=== PATIENT | male | born 1940 | race Caucasian/White ===

== ENCOUNTER 2017-01-01 18:17 | Inpatient (IN) ==
[2017-01-01 18:41] LABS: Basophils # 0.1 K/mcL (0.0-0.2); Basophils % 0.7 %; Eosinophils # 0.5 K/mcL (0.0-0.6); Eosinophils % 4.4 %; Hematocrit 46.1 % (37.5-50.1); Hemoglobin 15.8 g/dL (12.9-16.9); Immature Granulocytes % 0.2 % (0-4); Lymphocytes % 28.5 %; Mean Corpuscular HGB Conc 34.3 g/dL (31.6-35.5); Mean Corpuscular Hemoglobin 32.6 pg (28.0-33.3); Mean Corpuscular Volume 95.1 fL (83.0-100.0); Mean Platelet Volume 10.3 fL (9.4-12.4); Monocytes # 0.9 K/mcL (0.0-1.3); Monocytes % 8.4 %; Neutrophils # 6.2 K/mcL (1.6-8.9); Platelet Count 338 K/mcL (140-400); Red Blood Count 4.85 M/mcL (4.19-5.50); Red Cell Distribution Width 13.9 % (11.5-14.5); Segmented Neutrophils % 57.8 %
[2017-01-01 18:46] LABS: INR 1.2; Prothrombin Time 12.5 Seconds (9.4-12.1)
[2017-01-01 18:49] LABS: Activated Partial Thrombo Time 31.3 Seconds (26.0-36.0)
[2017-01-01 18:55] LABS: BUN/Creatinine Ratio 15 (6-26); Blood Urea Nitrogen 14 mg/dL (8-26); Calcium 9.4 mg/dL (8.6-10.8); Carbon Dioxide 29 mEq/L (19-29); Chloride 106 mEq/L (98-109); Glucose 123 mg/dL (70-99); Osmolality,Calculated 294 (280-300); Sodium 141 mEq/L (136-145); eGFR For African Americans > 60 (> 60); eGFR For Non-African Americans > 60 (> 60)
--- NOTE | 2017-01-01 18:59 | Emergency Department Note ---
Disposition Clinical Impression: Epigastric abdominal pain, Transaminitis, Elevated bilirubin Disposition: Admitted As Inpatient Condition: Good General Adult HPI - General Chief complaint: ED Chest Pain Stated complaint: Chest Pain Time Seen by Provider: 01/01/17 18:55 Source: patient Mode of arrival: private vehicle Limitations: no limitations Nursing Notes Reviewed: Yes Vital Signs Reviewed: Yes - History of Present Illness HPI Narrative: 76-year-old male history of hyperlipidemia, gastric ulcers who presents to the ER with a chief complaint of epigastric pain. Patient states symptoms began roughly 1-1/2 hours ago. States he was riding on his lawnmower whenever he had sudden onset of symptoms. He is unable to provide a description of the symptoms but reports it is better as of now. He denies prior history of this happening. He states he did feel nauseous and broke out into a sweat. He denies prior history of cardiac disease. No history of VA, DVT or PE. No recent vomiting or diarrhea. No cough or shortness of breath. No prior cardiac workup history. No other complaints. Pt Subjective Complaint: Chest pain/epigastric pain Onset (ago): hour(s) Location: chest, abdomen Radiation: non-radiation Pain Severity: moderate Pain Scale: 5 Quality: other Consistency: Improving Improves with: nothing Worsens with: nothing Associated symptoms: Reports: chest pain, diaphoresis, nausea/vomiting (No vomiting) Treatments Prior to Arrival: none - Related Data Home Medications Medication Instructions Recorded Confirmed Cholecalciferol (Vitamin D3) 2,000 unit PO DAILY 01/09/15 01/01/17 [Vitamin D] Aspirin Enteric Coated [Aspirin EC] 81 mg PO DAILY 01/01/17 01/01/17 Atorvastatin Calcium [Lipitor] 20 mg PO HS 01/01/17 01/01/17 Allergies Allergy/AdvReac Type Severity Reaction Status Date / Time No Known Allergies Allergy Verified 01/09/15 13:57 All systems ED: reviewed and negative except as stated. Constitutional: Denies: fever Cardiovascular: Reports: chest pain (Epigastric). Denies: palpitations Respiratory: Denies: cough, dyspnea Gastrointestinal: Reports: abdominal pain (Epigastric), nausea. Denies: vomiting Musculoskeletal: Denies: back pain, neck pain Past Medical History - Past Medical History Attestation: Yes The following information was validated with the patient. Source: patient Medical history: Reports: arthritis, GERD, hyperlipidemia, hypertension, other Surgical history: Reports: cholecystectomy, herniorrhaphy (x3 with mesh), orthopedic, other (left foot surgery; left leg surgery), splenectomy Psychiatric history: Reports: no psych history - Social History Smoking Status: Never smoker Smokeless Tobacco Status: No Alcohol use: Reports: none Drug use: Reports: none Physical Exam - General Limitations: no limitations General appearance: alert, in no apparent distress - Head Head exam: atraumatic, normocephalic, normal inspection - Eye Eye exam: Present: normal appearance, EOMI - ENT ENT exam: normal exam - Neck Neck exam: Present: normal inspection, full ROM - Chest Chest inspection: Present: normal inspection, symmetric chest wall rise - Respiratory Respiratory exam: Present: normal lung sounds bilaterally - Cardiovascular Cardiovascular exam: Present: regular rate, irregular rhythm, normal heart sounds - Abdominal Exam Abdominal exam: Present: soft, tenderness (Patient has reproducible tenderness in the epigastric region without distention guarding or rigidity.) - Extremities Exam Extremities exam: Present: normal inspection, full ROM - Expanded Upper Extremity Exam Shoulder exam: Present: normal inspection, full ROM Arm exam: Present: normal inspection, full ROM Elbow exam: Present: normal inspection, full ROM Forearm/Wrist exam: Present: normal inspection, full ROM Hand exam: Present: normal inspection, full ROM Vascular exam: Normal: radial pulse - Expanded Lower Extremity Exam Hip/Pelvis exam: Present: normal inspection, full ROM Upper leg exam: Present: normal inspection, full ROM Knee exam: Present: normal inspection, full ROM Lower leg exam: Present: normal inspection, full ROM Ankle exam: Present: normal inspection, full ROM Foot/toe exam: Present: normal inspection, full ROM Neurovascular/Tendon exam: Absent: motor deficit, sensory deficit - Neurological Exam Neurological exam: Present: alert - Psychiatric Psychiatric exam: Present: normal affect, normal mood - Skin Skin exam: Present: warm, dry, intact, normal color Course Course Narrative: Patient seen and examined. EKG shows no acute findings. His pain is reproducible midepigastric region. We will obtain an EKG, chest x-ray as well as labs including troponin as well as a CT scan of the abdomen and pelvis. - Reevaluation(s) Reevaluation #1: I attempted to speak with the gemologist here for evaluation due to his transaminitis, elevated alkaline phosphatase and elevated bilirubin. There is no current ER coverage. I discussed with the family about admission for his abnormal labs as well as his vague epigastric pain rule out ACS. They are in agreement with this plan. Vital Signs Temperature 97.9 F 01/01/17 18:18 Pulse Rate 53 01/01/17 18:18 Respiratory Rate 22 01/01/17 18:18 Blood Pressure 145/73 01/01/17 18:18 O2 Sat by Pulse Oximetry 96 01/01/17 18:18 Temperature 97.9 F 01/01/17 18:18 Pulse Rate 71 01/01/17 20:47 Respiratory Rate 16 01/01/17 22:15 Blood Pressure 135/67 01/01/17 22:15 O2 Sat by Pulse Oximetry 98 01/01/17 20:47 Oxygen Delivery Oxygen Delivery Room Air Medical Decision Making - MDM Narrative Medical decision making narrative: 76-year-old male presents to the ER due to epigastric abdominal pain. Started earlier today when he was riding lower. No prior history of cardiac disease. His pain here is epigastric and reproducible. His EKG is nonischemic with ectopy. First troponin is negative. He did have some metabolic derangements with a transaminitis, elevated bilirubin and alkaline phosphatase. Prior history of cholecystectomy around 3 years ago as per family. CT scan demonstrates no acute abnormalities of the abdomen. Patient will be admitted for ACS rule out as well as gastroenterology consultation for abnormal labs. - Lab Data Lab results reviewed: Yes I reviewed the patient's lab results. Result diagrams: 01/01/17 18:35 01/01/17 18:35 Lab Results 01/01/17 01/01/17 01/01/17 Range/Units 18:35 18:35 18:35 WBC 10.7 (4.3-11.1) K/mcL RBC 4.85 (4.19-5.50) M/mcL Hgb 15.8 (12.9-16.9) g/dL Hct 46.1 (37.5-50.1) % MCV 95.1 (83.0-100.0) fL MCH 32.6 (28.0-33.3) pg MCHC 34.3 (31.6-35.5) g/dL RDW 13.9 (11.5-14.5) % Plt Count 338 (140-400) K/mcL MPV 10.3 (9.4-12.4) fL Immature Gran % 0.2 (0-4) % Seg Neutrophils % 57.8 % Lymphocytes % 28.5 % Monocytes % 8.4 % Eosinophils % 4.4 % Basophils % 0.7 % Neutrophils # 6.2 (1.6-8.9) K/mcL Lymphocytes # 3.0 (0.6-4.6) K/mcL Monocytes # 0.9 (0.0-1.3) K/mcL Eosinophils # 0.5 (0.0-0.6) K/mcL Basophils # 0.1 (0.0-0.2) K/mcL PT 12.5 H (9.4-12.1) Seconds INR 1.2 APTT 31.3 (26.0-36.0) Seconds Sodium (136-145) mEq/L Potassium (3.5-4.5) mEq/L Chloride (98-109) mEq/L Carbon Dioxide (19-29) mEq/L BUN (8-26) mg/dL Creatinine (0.72-1.25) mg/dL Est GFR ( Amer) (> 60) Est GFR (Non-Af Amer) (> 60) BUN/Creatinine Ratio (6-26) Glucose (70-99) mg/dL Calculated Osmolality (280-300) Calcium (8.6-10.8) mg/dL Total Bilirubin (0.2-1.2) mg/dL Direct Bilirubin (0.0-0.5) mg/dL Indirect Bilirubin (0.0-1.2) mg/dL AST (5-34) Units/L ALT (0-55) Units/L Alkaline Phosphatase (38-126) Units/L Troponin I (0-0.03) ng/mL B-Natriuretic Peptide 78 (0-100) pg/mL Serum Total Protein (6.0-8.3) g/dL Albumin (3.5-5.0) g/dL Globulin (2.4-3.5) g/dL Albumin/Globulin Ratio (1.1-2.2) Lipase (8-78) Units/L 01/01/17 01/01/17 Range/Units 18:35 18:35 WBC (4.3-11.1) K/mcL RBC (4.19-5.50) M/mcL Hgb (12.9-16.9) g/dL Hct (37.5-50.1) % MCV (83.0-100.0) fL MCH (28.0-33.3) pg MCHC (31.6-35.5) g/dL RDW (11.5-14.5) % Plt Count (140-400) K/mcL MPV (9.4-12.4) fL Immature Gran % (0-4) % Seg Neutrophils % % Lymphocytes % % Monocytes % % Eosinophils % % Basophils % % Neutrophils # (1.6-8.9) K/mcL Lymphocytes # (0.6-4.6) K/mcL Monocytes # (0.0-1.3) K/mcL Eosinophils # (0.0-0.6) K/mcL Basophils # (0.0-0.2) K/mcL PT (9.4-12.1) Seconds INR APTT (26.0-36.0) Seconds Sodium 141 (136-145) mEq/L Potassium 4.0 (3.5-4.5) mEq/L Chloride 106 (98-109) mEq/L Carbon Dioxide 29 (19-29) mEq/L BUN 14 (8-26) mg/dL Creatinine 0.95 (0.72-1.25) mg/dL Est GFR ( Amer) > 60 (> 60) Est GFR (Non-Af Amer) > 60 (> 60) BUN/Creatinine Ratio 15 (6-26) Glucose 123 H (70-99) mg/dL Calculated Osmolality 294 (280-300) Calcium 9.4 (8.6-10.8) mg/dL Total Bilirubin 1.7 H (0.2-1.2) mg/dL Direct Bilirubin 0.8 H (0.0-0.5) mg/dL Indirect Bilirubin 0.9 (0.0-1.2) mg/dL AST 130 H (5-34) Units/L ALT 63 H (0-55) Units/L Alkaline Phosphatase 146 H (38-126) Units/L Troponin I 0.00 (0-0.03) ng/mL B-Natriuretic Peptide (0-100) pg/mL Serum Total Protein 7.4 (6.0-8.3) g/dL Albumin 3.5 (3.5-5.0) g/dL Globulin 3.9 H (2.4-3.5) g/dL Albumin/Globulin Ratio 0.9 L (1.1-2.2) Lipase 58 (8-78) Units/L - Radiology Data Radiology results reviewed: Yes I reviewed the patient's radiology results. Chest X-Ray 01/01/17 18:23 IMPRESSION: No acute abnormality D/ / Bari Santos / Bari Santos Interpreting Provider: Bari Santos Abdomen/Pelvis CT 01/01/17 18:56 IMPRESSION: Negative noncontrast study. D/ / Lillian Rodriguez Cha, MD / Lillian Rodriguez Cha, MD Interpreting Provider: Lillian Rodriguez Cha, MD - EKG Data EKG #1 EKG attestation: Yes I reviewed and interpreted this EKG. EKG results narrative: EKG demonstrates sinus bradycardia with rate of 59 bpm with PACs. Normal intervals. Left axis deviation. Normal R-wave progression. No gross ST elevations or depressions. No acute ischemic findings. No significant changes from previous EKG dated 07/24/12. S.B.A.R. - S.B.A.RCharu Situation: Demographics, MOA Background: Presenting Complaint, Relevant PMH, Meds, & Allergies Assessment: Course and respsone to treatment, Exam Concerns, Patient/Family Expectation, Pertinant Lab Results, Outstanding Labs Recommendation: Barrier(s) to disposition, Recommendation based on pending studies, treatments, or consults S.B.A.RCharu Report Given to: Dr. Clifton Gonzalez Repor Time: 21:41 Attestation Statement - Attestation Attestation: I, Pepe Melgar MD, personally evaluated this patient and discussed their management with the resident physician. I reviewed the resident's note and agree with the documented findings, medical decision making, and plan of care. 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 No radiation of the pain. He did complain of nausea with the pain but no vomiting. No shortness of breath. There was profuse diaphoresis. The pain has improved spontaneously since onset however, my exam he states it feels like it is starting to come back. Patient has had his gallbladder out several years ago. He denies any cardiac history. On examination patient is a well-developed well-nourished well-appearing elderly male in no acute distress. He is alert and oriented 3. There is no cyanosis or diaphoresis. Chest is nontender to palpation. Breath sounds are clear and equal bilaterally. Heart regular rate and rhythm. Abdomen is soft with mild to moderate midepigastric tenderness on direct palpation. No guarding or rebound tenderness. No CVA tenderness. Labs reviewed. Troponin negative. Elevated hepatic enzymes noted. Chest x- ray negative. No acute changes on EKG. CT of the abdomen and pelvis was obtained and showed no definite acute abnormality. The hospitalist, Dr. Lazo, was consulted and accepted admission of the patient.
[2017-01-01 19:17] LABS: Alanine Aminotransferase 63 Units/L (0-55); Albumin 3.5 g/dL (3.5-5.0); Albumin/Globulin Ratio 0.9 (1.1-2.2); Alkaline Phosphatase 146 Units/L (38-126); Aspartate Amino Transferase 130 Units/L (5-34); Bilirubin,Direct 0.8 mg/dL (0.0-0.5); Bilirubin,Indirect 0.9 mg/dL (0.0-1.2); Bilirubin,Total 1.7 mg/dL (0.2-1.2); Globulin 3.9 g/dL (2.4-3.5); Total Protein 7.4 g/dL (6.0-8.3)
[2017-01-01 20:06] LABS: Lipase 58 Units/L (8-78)
[2017-01-01] MEDS ORDERED: *HR* Morphine 2 MG/ML SYRINGE IVP ONE (21:10)
[2017-01-01] MEDS ORDERED: *HR* Succinylcholine 200 MG/10 ML VIAL IVP ONE (22:02)
[2017-01-01] MEDS ORDERED: Lidocaine -MPF 2% 5 ML VIAL INFILT ONE (22:02)
[2017-01-01] MEDS ORDERED: Lidocaine -MPF 4% 5 ML AMPUL INFILT ONE (22:02)
[2017-01-01] MEDS ORDERED: Ondansetron 4 MG/2 ML VIAL IVP ONE (22:02)
[2017-01-01] MEDS ORDERED: *HR* Propofol 200 MG/20 ML VIAL IVP ONE (22:02)
[2017-01-01] MEDS ORDERED: FLUARIX QUAD 2017-18 36MOS UP/PF 0.5 ML SYRINGE IM ONE (22:44)
--- NOTE | 2017-01-01 23:39 | Internal Med History&Physical ---
<Thuan Mix - Last Filed: 01/01/17 23:55> Date of Encounter: 01/01/17 Time of Encounter: 21:45 Assessment and Plan (1) Epigastric abdominal pain Current visit: Yes Status: Acute Patient's epigastric pain is reproduced by palpation. This could possibly represent peptic ulcer disease or biliary disease, given his elevated AST, ALP, and alkaline phosphatase. -Referral to gastroenterology. -Right upper quadrant ultrasound. -Protonix IV twice a day. -Repeat CMP, repeat bilirubin. (2) Transaminitis Current visit: Yes Status: Acute Patient's liver enzymes are elevated. -AST was 130, ALT was 63, alkaline phosphatase was 146. -Patient denies having any history of alcohol use. -CT scan of the abdomen revealed no acute changes. -Referral to gastroenterology. (3) Elevated bilirubin Current visit: Yes Status: Acute Patient had elevated bilirubin. -Total bilirubin was 1.7, and indirect bilirubin was 0.8. -Repeat bilirubin studies. -Right upper quadrant ultrasound to rule out the possibility of obstruction or biliary disease. Internal Medicine - H&P: HPI Admitted From: Home History of present illness: Mr. Clay is a 76 year old male with past medical history of arthritis, GERD, hyperlipidemia, and hypertension who presented to the hospital with a chief complaint of abdominal pain in the epigastric area as well as lower chest pain. He states that this pain began approximately 90 minutes prior to admission. He states that he was riding on his lawnmower when he had a very sudden onset of symptoms. He described his pain as being sharp constant pain, nonradiating. He states that his pain has improved since his admission to the hospital. Pain is reproducible on palpation. One area is palpated, patient winces in pain. He notes that when his symptoms first began, he felt nauseous and broke out into a sweat. He currently denies diaphoresis or nausea. He denies having any previous history of cardiac disease, GA, DVT, or PE. He has had no recent vomiting or diarrhea. Patient denies having any recent changes in the appearance or consistency of his stools. He denies diarrhea or constipation. Past Med Surg Social Fam HX - Past Medical History Medical history: arthritis, GERD, hyperlipidemia, hypertension, other Psychiatric history: no psych history - Past Surgical History Surgical History: cholecystectomy, herniorrhaphy, orthopedic, other, splenectomy - Social History Smoking Status: Never smoker Smokeless Tobacco Status: No Alcohol use: none Drug use: none - Family History Father Hx Family Respiratory Disorders: Yes (emphysema) Sister Living Status: Hx Family Cancer: Yes Hx Family GI Disorders: Yes Mother Living Status: Hx Family GI Disorders: Yes (colitis) Internal Medicine - H&P: Meds Cholecalciferol (Vitamin D3) [Vitamin D] 2,000 unit PO DAILY 01/09/15 [History] Aspirin Enteric Coated [Aspirin EC] 81 mg PO DAILY 01/01/17 [History] Atorvastatin Calcium [Lipitor] 20 mg PO HS 01/01/17 [History] 3 Allergy/AdvReac Type Severity Reaction Status Date / Time No Known Allergies Allergy Verified 01/09/15 13:57 All Systems PM: A 10-system review of systems was performed and is negative for pertinent findings except as documented above in the HPI. - EENT Nose, mouth and throat: no dysphagia, no nasal discharge, no neck pain, no sore throat - Cardiovascular Cardiovascular ROS IM: chest pain, no diaphoresis, no dyspnea, no lightheadedness, no palpitations, no syncope - Respiratory Respiratory: no cough, no dyspnea, no wheezing, no excessive phlegm production - Gastrointestinal Gastrointestinal: abdominal pain, no constipation, no cramping, no diarrhea, no hematemesis, no hematochezia, no melena, no nausea, no vomiting - Musculoskeletal Musculoskeletal ROS IM: no numbness, no tingling - Integumentary Integumentary IM: no rash, no unusual bruising - Constitutional Vitals: Temp Pulse Resp BP Pulse Ox 98.1 F 78 16 173/68 93 01/01/17 22:34 01/01/17 22:34 01/01/17 22:15 01/01/17 22:34 01/01/17 22:34 General appearance: Present: A&O X 3, no acute distress, answers questions appropriately - Head Head exam: Present: atraumatic, normocephalic - Respiratory Respiratory exam: Present: CTAB. Absent: accessory muscle use, rales, rhonchi, wheezes - Cardiovascular Cardiovascular exam: Present: RRR, +S1, +S2. Absent: diastolic murmur, gallop, rubs, systolic murmur - GI/Abdominal GI/Abdominal exam: Present: normal bowel sounds, soft, no peritoneal signs. Absent: distended, tenderness - Extremities Exam Extremities exam: Present: warm, radial pulses palpable and symmetrical. Absent : pedal edema - Skin Skin exam: Present: dry, intact Internal Med - H&P Results - Labs CBC & Chem 7: 01/01/17 18:35 01/01/17 18:35 <Hernesto Coker Monie - Last Filed: 01/02/17 01:00> Date of Encounter: 01/01/17 Assessment and Plan (1) Chest pain Current visit: Yes Status: Acute Patient has no known as no history of CAD but presents with chest pain and associated symptoms(diaphoresis, pressure like chest pain, lightheadedness, feeling of apprehension) concerning for ACS, EKG was not remarkable for ischemia but he has symptoms and risk factors for which it will be reasonable to order a stress test, cycle troponin, telemetry monitoring, NPO post midnight Qualifiers: Chest pain type: precordial pain Qualified Code(s): R07.2 - Precordial pain Internal Medicine - H&P: HPI Chief complaint: Chest/epigastric pain Plans for Post Hospital Care: Home History of present illness: Mr. Clay is a 76 year old male Past Med Surg Social Fam HX - Additional Family History Additional family history: Sister had colon cancer in her 40s, no known family history of CAD All Systems PM: A 10-system review of systems was performed and is negative for pertinent findings except as documented above in the HPI. - Constitutional Vitals: Temp Pulse Resp BP Pulse Ox 98.1 F 78 16 173/68 93 01/01/17 22:34 01/01/17 22:34 01/01/17 22:15 01/01/17 22:34 01/01/17 22:34 Internal Med - H&P Results - Labs CBC & Chem 7: 01/02/17 00:38 01/01/17 18:35 Labs: Short CBC 01/02/17 Range/Units 00:38 WBC 10.4 (4.3-11.1) K/mcL Hgb 14.9 (12.9-16.9) g/dL Hct 43.1 (37.5-50.1) % Plt Count 309 (140-400) K/mcL Neutrophils # 5.5 (1.6-8.9) K/mcL - Attending Attestation I personally interviewed and examined this patient and my medical decision- making was reviewed with the Resident Physician. I agree with the documented findings, disposition and treatment plan as described except to the extent set forth below. Patient with no known history of CAD with a negative stress test in 2012 comes in with chest pain with other symptoms concerning for ACS, incidentally his physical exam findings was remarkable for epigastric tenderness as well as elevated LFTs on bood draw, we will order a nuclear stress test and follow a dedicated biliary tree USG in AM. Hernesto Coker MD, MPH Hospitalist
[2017-01-01] MEDS ORDERED: Naloxone 0.4 MG/ML INJ IVP PRN (23:51)
[2017-01-02 00:46] LABS: Basophils # 0.1 K/mcL (0.0-0.2); Basophils % 0.7 %; Eosinophils # 0.4 K/mcL (0.0-0.6); Eosinophils % 3.5 %; Hematocrit 43.1 % (37.5-50.1); Hemoglobin 14.9 g/dL (12.9-16.9); Immature Granulocytes % 0.2 % (0-4); Lymphocytes # 3.5 K/mcL (0.6-4.6); Lymphocytes % 33.3 %; Mean Corpuscular HGB Conc 34.6 g/dL (31.6-35.5); Mean Corpuscular Hemoglobin 32.3 pg (28.0-33.3); Mean Corpuscular Volume 93.5 fL (83.0-100.0); Mean Platelet Volume 10.2 fL (9.4-12.4); Monocytes % 9.8 %; Neutrophils # 5.5 K/mcL (1.6-8.9); Platelet Count 309 K/mcL (140-400); Red Blood Count 4.61 M/mcL (4.19-5.50); Red Cell Distribution Width 14.1 % (11.5-14.5); Segmented Neutrophils % 52.5 %
[2017-01-02 00:58] LABS: Hemoglobin A1C 5.2 %
[2017-01-02 01:00] LABS: Alanine Aminotransferase 103 Units/L (0-55); Albumin 3.1 g/dL (3.5-5.0); Albumin/Globulin Ratio 0.9 (1.1-2.2); Alkaline Phosphatase 140 Units/L (38-126); Aspartate Amino Transferase 166 Units/L (5-34); BUN/Creatinine Ratio 18 (6-26); Bilirubin,Direct 0.5 mg/dL (0.0-0.5); Bilirubin,Indirect 0.6 mg/dL (0.0-1.2); Bilirubin,Total 1.1 mg/dL (0.2-1.2); Blood Urea Nitrogen 14 mg/dL (8-26); Calcium 8.8 mg/dL (8.6-10.8); Carbon Dioxide 26 mEq/L (19-29); Chloride 107 mEq/L (98-109); Globulin 3.6 g/dL (2.4-3.5); Glucose 91 mg/dL (70-99); Osmolality,Calculated 290 (280-300); Potassium 3.9 mEq/L (3.5-4.5); Sodium 140 mEq/L (136-145); Total Protein 6.7 g/dL (6.0-8.3); eGFR For African Americans > 60 (> 60); eGFR For Non-African Americans > 60 (> 60)
[2017-01-02 01:01] LABS: Chol/HDL Ratio 3.7 (0-4.9); Magnesium 2.1 mg/dL (1.6-2.6); Phosphorous 3.6 mg/dL (2.3-4.7)
[2017-01-02] MEDS ORDERED: Regadenoson 0.4 MG/5 ML SYRINGE IVP ONE (05:54)
[2017-01-02] MEDS: Pantoprazole 40 MG VIAL IVP SCH ×2 (05:58→18:37)
[2017-01-02] MEDS: *HR* Heparin 5,000 UNIT/ML VIAL SQ SCH ×3 (05:58→22:10)
[2017-01-02] MEDS: Aspirin Enteric Coated 81 MG Tablet PO SCH (12:16)
[2017-01-02] MEDS: Cholecalciferol (D-3) 1,000 UNIT TABLET PO SCH (12:17)
[2017-01-02 15:47] LABS: Albumin 3.2 g/dL (3.5-5.0); Albumin/Globulin Ratio 0.9 (1.1-2.2); Bilirubin,Direct 0.7 mg/dL (0.0-0.5); Bilirubin,Indirect 1.1 mg/dL (0.0-1.2); Globulin 3.4 g/dL (2.4-3.5); Total Protein 6.6 g/dL (6.0-8.3)
[2017-01-02 15:48] LABS: Bilirubin,Total 1.8 mg/dL (0.2-1.2)
--- NOTE | 2017-01-02 17:16 | Gastroenterology Consult Note ---
<Lexy Villanueva - Last Filed: 01/02/17 17:53> Date of Encounter: 01/02/17 Time of Encounter: 17:09 - Assessment and plan (1) Choledocholithiasis Current Visit: Yes Status: Acute Assessment and plan: MRI with evidence of 6mm choledocholithiasis with distal bile duct dilation RUQ ultrasound with evidence of common bile duct dilation up to 9 mm but no intrahepatic dilation Liver enzymes elevated likely secondary to blockage Will allo for clear liquid diet for now, NPO after midnight Will plan for ERCP in morning to remove stone Further recommendations to follow after ERCP - Time Spent With Patient Total time spent is greater than 50% in coordination of care (as documented) at patient's floor/unit and/or counseling patient: GI History of Present Illness - Data of Consult Requesting Physician: Ismael Helton MD - Consult Narrative Reason for consult: abdominal pain History of present illness: Mr. Clay is a 76 year old male who presented with sudden onset epigastric abdominal pain who is being seen in consult. 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 He states that he attempted to continue to mow but the pain became worse. He eventually went to house and sat next to his at which point the pain was so severe that he felt he was going to pass out. His who is at bedside states when patient sat down he looked very pale and was extremely diaphoretic. He states that he was very concerned that he was going to as he thought it was his heart. He reports that he had one similar episode about 2 -3 years ago prior to having his gallbladder out but states that the pain at that time was much worse than his current pain. He feels that by time he got to the emergency room his pain ahd begun to improve. He still has some residual pain but classifies it as more of an ache. He denies any change with meals. He denies any family history of liver disease or issues. He has no other concerns at this time. Past Med Surg Social Fam HX - Past Medical History Medical history: arthritis, GERD, hyperlipidemia, hypertension, other Psychiatric history: no psych history - Past Surgical History Surgical History: cholecystectomy, herniorrhaphy, orthopedic, other, splenectomy - Social History Smoking Status: Never smoker Smokeless Tobacco Status: No Alcohol use: none Drug use: none - Family History Father Hx Family Respiratory Disorders: Yes (emphysema) Sister Living Status: Hx Family Cancer: Yes Hx Family GI Disorders: Yes Mother Living Status: Hx Family GI Disorders: Yes (colitis) - Gastrointestinal Gastrointestinal: Present: abdominal pain (epigastric). Absent: constipation, diarrhea, heartburn, hematemesis, nausea, vomiting - Constitutional Constitutional: no fever(s) - EENT Ears: Absent: ear pain Nose, mouth and throat: Absent: dysphagia, sore throat - Cardiovascular Cardiovascular ROS: Absent: chest pain - Respiratory Respiratory IM: Absent: cough, dyspnea - Genitourinary Genitourinary: Absent: Urinary frequency - Neurological ROS Neurological GI: Absent: weakness - Hematologic/Lymphatic Hematologic/Lymphatic pediatric: Absent: easy bleeding - Musculoskeletal Musculoskeletal ROS GI: Absent: back pain, joint swelling - Integumentary Integumentary GI: Absent: jaundice, rash - Constitutional Vitals: Temp Pulse Resp BP Pulse Ox 97.7 F 49 20 148/76 96 01/02/17 04:16 01/02/17 04:16 01/02/17 04:16 01/02/17 04:16 01/02/17 04:16 General appearance: Present: cooperative, A&O X 3, pleasant, no acute distress, obese, answers questions appropriately - Head Head exam: Present: atraumatic, normocephalic - Eye Eye exam: Present: normal appearance, sclera anicteric. Absent: conjunctival injection - ENT ENT exam: Present: mucous membranes moist - Neck Neck exam general surgery: Present: supple, trachea midline - Respiratory Respiratory exam: Present: CTAB. Absent: rales, rhonchi, stridor, wheezes - Cardiovascular Cardiovascular exam: Present: RRR, +S1, +S2. Absent: diastolic murmur, systolic murmur - GI/Abdominal GI/Abdominal exam: Present: normal bowel sounds, soft, tenderness (epigastric ) . Absent: distended, rebound, rigid - Extremities Exam Extremities exam: Present: normal capillary refill. Absent: pedal edema - Skin Skin exam: Present: intact, normal color, warm. Absent: rash Results - Labs CBC & Chem 7: 01/02/17 00:38 01/02/17 00:38 Labs: Last Result Calcium 8.8 mg/dL (8.6-10.8) 01/02/17 00:38 Troponin I 0.01 ng/mL (0-0.03) 01/02/17 06:49 Triglycerides 140 mg/dL (< 150) 01/02/17 00:38 Entire Visit Hgb 14.9 g/dL (12.9-16.9) 01/02/17 00:38 Hct 43.1 % (37.5-50.1) 01/02/17 00:38 PT 12.5 Seconds (9.4-12.1) H 01/01/17 18:35 Total Bilirubin 1.8 mg/dL (0.2-1.2) H D 01/02/17 15:19 AST 90 Units/L (5-34) H 01/02/17 15:19 ALT 87 Units/L (0-55) H 01/02/17 15:19 Lipase 58 Units/L (8-78) 01/01/17 18:35 - ABG ABG results: PT/INR, D-dimer PT 12.5 Seconds (9.4-12.1) H 01/01/17 18:35 - Impressions Impressions Abdomen Ultrasound 01/02/17 11:30 IMPRESSION: 1. Coarse liver echotexture which is nonspecific. Recommend correlation with any chronic underlying liver disease. 2. Mildly dilated common bile duct which is similar in appearance dating back to 07/25/2014 CT and likely related to postcholecystectomy changes. Findings can be correlated with LFTs. 3. Right renal cysts. D/ / 01/02/2017 12:41:38 Leonora Guzmán MD / [facility] Interpreting Provider: Leonora Guzmán MD Abdomen MRI 01/02/17 15:00 IMPRESSION: 1. Mild biliary duct dilation with a 6 mm choledocholithiasis within the distal common bile duct. 2. 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 A few foci of side-branch ectasia are noted within the pancreas which can be seen as sequela of chronic pancreatitis. 3. Bilateral renal cysts. D/ / 01/02/2017 16:43:54 Leonora Guzmán MD / [facility] Interpreting Provider: Leonora Guzmán MD Consult Discharge Plan - Plan Referrals: Kannan Grover MD [Primary Care Provider] - <Lilly Caputo - Last Filed: 01/02/17 22:07> Date of Encounter: 01/02/17 - Time Spent With Patient Total time spent is greater than 50% in coordination of care (as documented) at patient's floor/unit and/or counseling patient: GI History of Present Illness - Data of Consult Requesting Physician: Ismael Helton MD - Consult Narrative History of present illness: Mr. Clay is a 76 year old male - Constitutional Vitals: Temp Pulse Resp BP Pulse Ox 98.6 F 54 16 135/73 95 01/02/17 19:33 01/02/17 19:33 01/02/17 19:33 01/02/17 19:33 01/02/17 19:33 Results - Labs CBC & Chem 7: 01/02/17 00:38 01/02/17 00:38 Labs: Last Result Calcium 8.8 mg/dL (8.6-10.8) 01/02/17 00:38 Troponin I 0.01 ng/mL (0-0.03) 01/02/17 06:49 Triglycerides 140 mg/dL (< 150) 01/02/17 00:38 Entire Visit Hgb 14.9 g/dL (12.9-16.9) 01/02/17 00:38 Hct 43.1 % (37.5-50.1) 01/02/17 00:38 PT 12.5 Seconds (9.4-12.1) H 01/01/17 18:35 Total Bilirubin 1.8 mg/dL (0.2-1.2) H D 01/02/17 15:19 AST 90 Units/L (5-34) H 01/02/17 15:19 ALT 87 Units/L (0-55) H 01/02/17 15:19 Lipase 58 Units/L (8-78) 01/01/17 18:35 - ABG ABG results: PT/INR, D-dimer PT 12.5 Seconds (9.4-12.1) H 01/01/17 18:35 - Impressions Impressions Abdomen Ultrasound 01/02/17 11:30 IMPRESSION: 1. Coarse liver echotexture which is nonspecific. Recommend correlation with any chronic underlying liver disease. 2. Mildly dilated common bile duct which is similar in appearance dating back to 07/25/2014 CT and likely related to postcholecystectomy changes. Findings can be correlated with LFTs. 3. Right renal cysts. D/ / 01/02/2017 12:41:38 Leonora Guzmán MD / [facility] Inter[facility] Provider: Leonora Guzmán MD Abdomen MRI 01/02/17 15:00 IMPRESSION: 1. Mild biliary duct dilation with a 6 mm choledocholithiasis within the distal common bile duct. 2. 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 A few foci of side-branch ectasia are noted within the pancreas which can be seen as sequela of chronic pancreatitis. 3. Bilateral renal cysts. D/ / 01/02/2017 16:43:54 Leonora Guzmán MD / [facility] Interpreting Provider: Leonora Guzmán MD - Attending Attestation I examined this patient and my medical decision-making was reviewed with the Resident Physician. I agree with the documented findings, disposition and treatment plan as described except to the extent set forth below.
--- NOTE | 2017-01-02 18:17 | Internal Med Progress Note ---
Date of Encounter: 01/02/17 Time of Encounter: 10:00 - Assessment and plan (1) Epigastric abdominal pain Current Visit: Yes Status: Acute Assessment and plan: -ACS has been ruled out as patient has negative cardiac biomarkers and negative stress tests. -GI has been consulted with recommendations for MRCP due to elevated transaminases. -MRCP negative will consider EGD. -Continue IV PPI. (2) Transaminitis Current Visit: Yes Status: Acute Assessment and plan: -Right upper quadrant ultrasound done and reviewed by GI. -Hepatitis panel pending. -We will continue to monitor; MRCP ordered as above for further evaluation. - Subjective Interval history: Patient continues to complain of epigastric discomfort. - Constitutional Vitals: Temp Pulse Resp BP Pulse Ox 97.7 F 49 20 148/76 96 01/02/17 04:16 01/02/17 04:16 01/02/17 04:16 01/02/17 04:16 01/02/17 04:16 General appearance: Present: A&O X 3, no acute distress, answers questions appropriately - Respiratory Respiratory exam: Present: CTAB. Absent: accessory muscle use, rales, rhonchi, wheezes - Cardiovascular Cardiovascular exam: Present: RRR, +S1, +S2. Absent: diastolic murmur, gallop, rubs, systolic murmur - GI/Abdominal GI/Abdominal exam: Present: guarding, soft, tenderness (Epigastric tenderness to palpation), no peritoneal signs. Absent: distended Internal Medicine: Result - Labs CBC & Chem 7: 01/02/17 00:38 01/02/17 00:38 Labs: Short CBC 01/02/17 Range/Units 00:38 WBC 10.4 (4.3-11.1) K/mcL Hgb 14.9 (12.9-16.9) g/dL Hct 43.1 (37.5-50.1) % Plt Count 309 (140-400) K/mcL Neutrophils # 5.5 (1.6-8.9) K/mcL BMP 01/02/17 00:38 Sodium 140 Potassium 3.9 Chloride 107 Carbon Dioxide 26 BUN 14 Creatinine 0.79 Glucose 91 Calcium 8.8 Cardiac Enzymes 01/02/17 01/02/17 Range/Units 00:38 06:49 Troponin I 0.00 0.01 (0-0.03) ng/mL Liver Function 01/02/17 01/02/17 01/02/17 Range/Units 00:38 00:38 15:19 Total Bilirubin 1.1 1.1 1.8 H D (0.2-1.2) mg/dL Direct Bilirubin 0.5 0.5 0.7 H (0.0-0.5) mg/dL AST 166 H 90 H (5-34) Units/L ALT 103 H 87 H (0-55) Units/L Alkaline Phosphatase 140 H 130 H (38-126) Units/L Albumin 3.1 L 3.2 L (3.5-5.0) g/dL - ABG Interpretation ABG results: PT/INR, D-dimer PT 12.5 Seconds (9.4-12.1) H 01/01/17 18:35 - Impressions Impressions Abdomen Ultrasound 01/02/17 11:30 IMPRESSION: 1. Coarse liver echotexture which is nonspecific. Recommend correlation with any chronic underlying liver disease. 2. Mildly dilated common bile duct which is similar in appearance dating back to 07/25/2014 CT and likely related to postcholecystectomy changes. Findings can be correlated with LFTs. 3. Right renal cysts. D/ / 01/02/2017 12:41:38 Leonora Guzmán MD / [facility] Interpreting Provider: Leonora Guzmán MD Abdomen MRI 01/02/17 15:00 IMPRESSION: 1. Mild biliary duct dilation with a 6 mm choledocholithiasis within the distal common bile duct. 2. 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 A few foci of side-branch ectasia are noted within the pancreas which can be seen as sequela of chronic pancreatitis. 3. Bilateral renal cysts. D/ / 01/02/2017 16:43:54 Leonora Guzmán MD / [facility] Interpreting Provider: Leonora Guzmán MD Consult Discharge Plan - Plan Referrals: Kannan Grover MD [Primary Care Provider] -
--- NOTE | 2017-01-02 20:05 | Electrocardiograph Report ---
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
--- NOTE | 2017-01-02 20:21 | Electrocardiograph Report ---
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
[2017-01-03] MEDS: *HR* Heparin 5,000 UNIT/ML VIAL SQ SCH ×3 (04:56→21:54)
[2017-01-03] MEDS: Pantoprazole 40 MG VIAL IVP SCH ×2 (04:59→17:37)
[2017-01-03 08:50] LABS: Basophils # 0.1 K/mcL (0.0-0.2); Basophils % 1.6 %; Eosinophils # 0.9 K/mcL (0.0-0.6); Eosinophils % 9.7 %; Hematocrit 44.7 % (37.5-50.1); Hemoglobin 15.4 g/dL (12.9-16.9); Immature Granulocytes % 0.2 % (0-4); Lymphocytes # 2.9 K/mcL (0.6-4.6); Lymphocytes % 32.5 %; Mean Corpuscular HGB Conc 34.5 g/dL (31.6-35.5); Mean Corpuscular Hemoglobin 32.8 pg (28.0-33.3); Mean Corpuscular Volume 95.3 fL (83.0-100.0); Mean Platelet Volume 10.5 fL (9.4-12.4); Monocytes # 0.9 K/mcL (0.0-1.3); Monocytes % 9.5 %; Neutrophils # 4.1 K/mcL (1.6-8.9); Platelet Count 338 K/mcL (140-400); Red Blood Count 4.69 M/mcL (4.19-5.50); Red Cell Distribution Width 14.3 % (11.5-14.5); Segmented Neutrophils % 46.5 %
[2017-01-03 09:07] LABS: Alanine Aminotransferase 74 Units/L (0-55); Albumin 3.1 g/dL (3.5-5.0); Albumin/Globulin Ratio 0.8 (1.1-2.2); Alkaline Phosphatase 129 Units/L (38-126); Aspartate Amino Transferase 62 Units/L (5-34); BUN/Creatinine Ratio 13 (6-26); Blood Urea Nitrogen 10 mg/dL (8-26); Carbon Dioxide 25 mEq/L (19-29); Chloride 107 mEq/L (98-109); Globulin 3.7 g/dL (2.4-3.5); Glucose 94 mg/dL (70-99); Osmolality,Calculated 285 (280-300); Potassium 4.6 mEq/L (3.5-4.5); Sodium 138 mEq/L (136-145); Total Protein 6.8 g/dL (6.0-8.3); eGFR For African Americans > 60 (> 60); eGFR For Non-African Americans > 60 (> 60)
[2017-01-03] MEDS ORDERED: *HR* FentaNYL (PF) 100 MCG/2 ML VIAL ONE (12:06)
[2017-01-03] MEDS ORDERED: Ondansetron 4 MG/2 ML VIAL IVP PRN (12:11)
[2017-01-03] MEDS ORDERED: *HR* HYDROmorphone (PF) 1 MG/ML SYRINGE IVP PRN (12:11)
[2017-01-03] MEDS ORDERED: *HR* Labetalol 20 MG/4 ML SYRINGE IVP PRN (12:11)
[2017-01-03] MEDS ORDERED: Indomethacin 50 MG SUPP.RECT RC ONE ×2 (12:57→12:58)
--- NOTE | 2017-01-03 13:00 | Anesthesia Evaluation PreOp ---
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 HX Other Medical History: GERD, Other (arthritis) Anesthesia History: No Prior Anesthetic Complications Alcohol Use: none Drug use: none Medications and Allergies Cholecalciferol (Vitamin D3) [Vitamin D] 2,000 unit PO DAILY 01/09/15 [History] Aspirin Enteric Coated [Aspirin EC] 81 mg PO DAILY 01/01/17 [History] Atorvastatin Calcium [Lipitor] 20 mg PO HS 01/01/17 [History] 3 Allergy/AdvReac Type Severity Reaction Status Date / Time No Known Allergies Allergy Verified 01/09/15 13:57 - Meds/Allergy Pre-op Review Medications Reviewed: Yes Allergies Reviewed: Yes Beta Blockers on Current Med List: No Anesthesia Results - Labs 01/03/17 08:13 01/03/17 08:13 - Imaging EKG: image reviewed Additional studies: 01/02 nuc med stress test neg ischemia, EF 66% Anesthesia Exam Vital Signs/O2 Sat/Glucose, Most Recent Temp Pulse Resp BP Pulse Ox 98.1 F 87 16 138/71 92 01/03/17 12:53 01/03/17 12:53 01/03/17 12:53 01/03/17 12:53 01/03/17 12:53 Blood Glucose* 93 Height: 1.75 Weight: 85 NPO (# of Hours): 8 - HEENT Pupil (Motor): Pupils equal Mallampati: II Teeth: Edentulous - SHOT GRINDER OPERATOR LOC: Oriented - Cardiac Rhythm: Regular Murmur: None JVD: No Carotid Bruit: No - Pulmonary Breath Sounds: bilateral Clear Respiratory Effort: Symmetrical Anesthesia Assess/Plan ASA Score: 2 Modified Envin Scale for Level of Consciousness: Cooperative, oriented, and tranquil Anesthetic Plan: General Monitoring Plan: Standard Monitors Recovery Plan: PACU
--- NOTE | 2017-01-03 14:54 | Anesthesia Evaluation Post Op ---
Date of Encounter: 01/03/17 Time of Encounter: 14:53 - Vital Signs Vital Signs: Selected Entries 01/03/17 14:27 01/03/17 14:47 Temperature 96.9 F L Pulse Rate 60 Respiratory Rate 16 Blood Pressure 125/77 O2 Sat by Pulse Oximetry 96 - Lungs Lungs: Clear Ascult./Percussion - Airway Airway: Non-obstructed - Cardiovascular Regular Rate - Mental Status Mental Status: Alert & Oriented, Answers Appropriately - Pain Pain Scale: 0 Pain Scale used: Numeric (1 - 10) - Nausea Vomiting Nausea Vomiting: Not Present - Hydration Hydration: NPO, Has not voided - Discharge PostOp Status: Transfer Patient to floor
[2017-01-03] MEDS: Cholecalciferol (D-3) 1,000 UNIT TABLET PO SCH (17:38)
[2017-01-03] MEDS: Aspirin Enteric Coated 81 MG Tablet PO SCH (17:38)
--- NOTE | 2017-01-03 18:04 | Internal Med Progress Note ---
Date of Encounter: 01/03/17 Time of Encounter: 11:00 - Assessment and plan (1) Epigastric abdominal pain Current Visit: Yes Status: Acute Assessment and plan: -ACS has been ruled out as patient has negative cardiac biomarkers and negative stress tests. -GI has been consulted with recommendations for MRCP due to elevated transaminases. -MRCP showed a 6 mm choledocholithiasis in the distal common bile duct. -ERCP was done on 01/03/17 for stone extraction. (2) Transaminitis Current Visit: Yes Status: Acute Assessment and plan: -Suspect secondary to the above. -Will continue to monitor. - Subjective Interval history: No acute events overnight. - Constitutional Vitals: Temp Pulse Resp BP Pulse Ox 97.5 F L 53 16 134/75 94 01/03/17 17:09 01/03/17 17:09 01/03/17 17:09 01/03/17 17:09 01/03/17 17:09 General appearance: Present: A&O X 3, no acute distress, answers questions appropriately - Respiratory Respiratory exam: Present: CTAB. Absent: accessory muscle use, rales, rhonchi, wheezes - Cardiovascular Cardiovascular exam: Present: RRR, +S1, +S2. Absent: diastolic murmur, gallop, rubs, systolic murmur Internal Medicine: Result - Labs CBC & Chem 7: 01/03/17 08:13 01/03/17 08:13 Labs: Short CBC 01/03/17 Range/Units 08:13 WBC 8.9 (4.3-11.1) K/mcL Hgb 15.4 (12.9-16.9) g/dL Hct 44.7 (37.5-50.1) % Plt Count 338 (140-400) K/mcL Neutrophils # 4.1 (1.6-8.9) K/mcL BMP 01/03/17 08:13 Sodium 138 Potassium 4.6 H Chloride 107 Carbon Dioxide 25 BUN 10 Creatinine 0.79 Glucose 94 Calcium 9.0 Liver Function 01/03/17 Range/Units 08:13 Total Bilirubin 2.0 H (0.2-1.2) mg/dL AST 62 H (5-34) Units/L ALT 74 H (0-55) Units/L Alkaline Phosphatase 129 H (38-126) Units/L Albumin 3.1 L (3.5-5.0) g/dL - ABG Interpretation ABG results: PT/INR, D-dimer PT 12.5 Seconds (9.4-12.1) H 01/01/17 18:35 - Impressions Impressions Cath/Invasive Procedure 01/03/17 13:05 IMPRESSION: Unremarkable ERCP images. Please refer to the procedure report for further details. D/ / 01/03/2017 15:31:33 Leonora Guzmán MD / [facility] Interpreting Provider: Leonora Guzmán MD Consult Discharge Plan - Plan Referrals: Kannan Grover MD [Primary Care Provider] -
[2017-01-03] MEDS ORDERED: Ketorolac 30 MG/ML VIAL IVP ONE (18:19)
[2017-01-04] MEDS ORDERED: *HR* HYDROmorphone (PF) 1 MG/ML SYRINGE IVP PRN (05:54)
[2017-01-04] MEDS: Pantoprazole 40 MG VIAL IVP SCH ×2 (06:44→18:12)
[2017-01-04] MEDS: Ketorolac 30 MG/ML VIAL IVP PRN ×2 (06:44→16:31)
[2017-01-04] MEDS: *HR* Heparin 5,000 UNIT/ML VIAL SQ SCH ×3 (06:44→20:42)
[2017-01-04] MEDS: Ringers Solution, Lactated 1,000 ML IVC SCH ×2 (06:59→21:50)
[2017-01-04] MEDS: Aspirin Enteric Coated 81 MG Tablet PO SCH (08:58)
[2017-01-04] MEDS: Cholecalciferol (D-3) 1,000 UNIT TABLET PO SCH (08:58)
[2017-01-04] MEDS ORDERED: FLUARIX QUAD 2017-18 36MOS UP/PF 0.5 ML SYRINGE IM ONE (14:11)
--- NOTE | 2017-01-04 17:49 | Internal Med Progress Note ---
Date of Encounter: 01/04/17 Time of Encounter: 11:00 - Assessment and plan (1) Epigastric abdominal pain Current Visit: Yes Status: Acute Assessment and plan: -ACS has been ruled out as patient has negative cardiac biomarkers and negative stress tests. -GI has been consulted with recommendations for MRCP due to elevated transaminases. -MRCP showed a 6 mm choledocholithiasis in the distal common bile duct. -ERCP was done on 01/03/17 for stone extraction. -Complaining of epigastric/chest discomfort this afternoon; nurse reports that patient has had runs of PVCs and SVTs -Will repeat cardiac biomarkers, which were negative on admission. -Patient will be transferred to stepdown for closer monitoring. (2) Transaminitis Current Visit: Yes Status: Acute Assessment and plan: -Suspect secondary to the above. -Will continue to monitor. - Subjective Interval history: No acute events overnight. Patient this afternoon however complaining to nurse about chest pressure and patient was reported to have runs of SVTs and PVCs. - Constitutional Vitals: Temp Pulse Resp BP Pulse Ox 99.1 F 52 14 123/66 96 01/04/17 16:08 01/04/17 16:08 01/04/17 16:08 01/04/17 16:08 01/04/17 16:08 General appearance: Present: A&O X 3, no acute distress, answers questions appropriately - Respiratory Respiratory exam: Present: CTAB. Absent: accessory muscle use, rales, rhonchi, wheezes - Cardiovascular Cardiovascular exam: Present: RRR, +S1, +S2. Absent: diastolic murmur, gallop, rubs, systolic murmur - GI/Abdominal GI/Abdominal exam: Present: tenderness (Epigastric tenderness) Internal Medicine: Result - Labs CBC & Chem 7: 01/03/17 08:13 01/03/17 08:13 - ABG Interpretation ABG results: PT/INR, D-dimer PT 12.5 Seconds (9.4-12.1) H 01/01/17 18:35 Consult Discharge Plan - Plan Additional Instructions: Follow-up appointments: If there is not an appointment listed below, please call your physician and schedule a follow-up appointment. If you have congestive heart failure and your symptoms return, make an appointment with your physician. Medication List: Carry an up to date list of medications you are taking at all time. We have given you an updated medication list including any new medications that you have been prescribed. Please provide that list to your primary provider Symptoms: If your condition changes or you experience any of the following symptoms, notify your physician immediately: Unusual or worsening pain, fever, persistent nausea and vomiting, bleeding, increase in swelling (especially in your legs), sudden weight gain, extreme dizziness, chest pain, increased drainage or redness from a wound or incision. Go to the emergency department if you experience a problem with breathing. Weights: If you have a history of swelling or shortness of breath, weigh yourself daily and notify your physician if you have a weight gain of two or more pounds in one day or 5 or more pounds in a week. If you experience any of the warning signs for stroke: Sudden numbness or weakness of the face, arm or leg; especially on one side of the body, sudden confusion, trouble speaking or understanding, sudden trouble seeing in one or both eyes, sudden trouble walking, dizziness, loss of balance or coordination, sudden sever headache with no cause; Call 911 or go to the emergency room. Stroke is a medical emergency. Some risk factors for stroke: Age, cigarette smoking, diabetes, excessive alcohol consumption, family history , high blood pressure, overweight, physical inactivity, prior stroke, heart attack, diagnosis of carotid artery stenosis or other artery disease. If you smoke, STOP: Smoking or tobacco use significantly increases your risk of heart and lung disease. Your chance of disease greatly increases if you continue to smoke. For more information, call the [place] tobacco quit line for smoking cessation NOW ( ) Referrals: Kannan Grover MD [Primary Care Provider] - Lilly Caputo MD [Partnered Physician] -
[2017-01-05] MEDS: Ringers Solution, Lactated 1,000 ML IVC SCH (04:12)
[2017-01-05] MEDS: *HR* Heparin 5,000 UNIT/ML VIAL SQ SCH ×3 (05:47→21:19)
[2017-01-05] MEDS: Pantoprazole 40 MG VIAL IVP SCH ×2 (05:47→17:25)
[2017-01-05] MEDS: Cholecalciferol (D-3) 1,000 UNIT TABLET PO SCH (08:22)
[2017-01-05] MEDS: Aspirin Enteric Coated 81 MG Tablet PO SCH (08:22)
[2017-01-05 08:42] LABS: Basophils # 0.1 K/mcL (0.0-0.2); Basophils % 0.7 %; Eosinophils # 0.5 K/mcL (0.0-0.6); Eosinophils % 2.7 %; Hematocrit 44.3 % (37.5-50.1); Hemoglobin 15.3 g/dL (12.9-16.9); Immature Granulocytes % 0.5 % (0-4); Lymphocytes # 3.8 K/mcL (0.6-4.6); Lymphocytes % 19.8 %; Mean Corpuscular HGB Conc 34.5 g/dL (31.6-35.5); Mean Corpuscular Hemoglobin 32.7 pg (28.0-33.3); Mean Corpuscular Volume 94.7 fL (83.0-100.0); Mean Platelet Volume 10.9 fL (9.4-12.4); Monocytes # 2.1 K/mcL (0.0-1.3); Monocytes % 10.8 %; Neutrophils # 12.5 K/mcL (1.6-8.9); Platelet Count 332 K/mcL (140-400); Red Blood Count 4.68 M/mcL (4.19-5.50); Red Cell Distribution Width 14.3 % (11.5-14.5); Segmented Neutrophils % 65.5 %
[2017-01-05 08:57] LABS: Alanine Aminotransferase 40 Units/L (0-55); Albumin 2.9 g/dL (3.5-5.0); Albumin/Globulin Ratio 0.8 (1.1-2.2); Alkaline Phosphatase 115 Units/L (38-126); Aspartate Amino Transferase 21 Units/L (5-34); BUN/Creatinine Ratio 18 (6-26); Bilirubin,Total 2.4 mg/dL (0.2-1.2); Blood Urea Nitrogen 15 mg/dL (8-26); Calcium 8.7 mg/dL (8.6-10.8); Carbon Dioxide 26 mEq/L (19-29); Chloride 105 mEq/L (98-109); Globulin 3.5 g/dL (2.4-3.5); Glucose 116 mg/dL (70-99); Osmolality,Calculated 286 (280-300); Potassium 4.3 mEq/L (3.5-4.5); Sodium 137 mEq/L (136-145); Total Protein 6.4 g/dL (6.0-8.3); eGFR For African Americans > 60 (> 60); eGFR For Non-African Americans > 60 (> 60)
[2017-01-05 11:12] LABS: Basophils # 0.1 K/mcL (0.0-0.2); Basophils % 0.6 %; Eosinophils # 0.5 K/mcL (0.0-0.6); Eosinophils % 2.6 %; Hematocrit 43.1 % (37.5-50.1); Immature Granulocytes % 0.4 % (0-4); Lymphocytes # 4.1 K/mcL (0.6-4.6); Lymphocytes % 20.4 %; Mean Corpuscular HGB Conc 34.8 g/dL (31.6-35.5); Mean Corpuscular Volume 94.9 fL (83.0-100.0); Mean Platelet Volume 10.7 fL (9.4-12.4); Monocytes # 2.1 K/mcL (0.0-1.3); Monocytes % 10.6 %; Neutrophils # 13.1 K/mcL (1.6-8.9); Platelet Count 322 K/mcL (140-400); Red Blood Count 4.54 M/mcL (4.19-5.50); Segmented Neutrophils % 65.4 %
--- NOTE | 2017-01-05 12:22 | Electrocardiograph Report ---
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
--- NOTE | 2017-01-05 16:38 | Internal Med Progress Note ---
Date of Encounter: 01/05/17 Time of Encounter: 11:00 - Assessment and plan (1) Epigastric abdominal pain Current Visit: Yes Status: Acute Assessment and plan: -ACS has been ruled out as patient has negative cardiac biomarkers and negative stress tests. -GI has been consulted with recommendations for MRCP due to elevated transaminases. -MRCP showed a 6 mm choledocholithiasis in the distal common bile duct. -ERCP was done on 01/03/17 for stone extraction. -Complaining of epigastric/chest discomfort this afternoon and now with leukocytosis; he is afebrile -Blood cultures have been ordered and patient will be started on IV Zosyn. -Will reevaluate on 01/06/17 (2) Transaminitis Current Visit: Yes Status: Acute Assessment and plan: -Suspect secondary to the above. -Total bilirubin has increased but AST/ALT are now within normal limits. (3) DVT prophylaxis Current Visit: Yes Status: Acute Assessment and plan: Subcutaneous heparin - Subjective Interval history: Patient this morning complaining of increase generalized abdominal discomfort. - Constitutional Vitals: Temp Pulse Resp BP Pulse Ox 98.8 F 79 18 131/80 95 01/05/17 11:10 01/05/17 11:10 01/05/17 11:10 01/05/17 11:10 01/05/17 11:10 General appearance: Present: A&O X 3, no acute distress, answers questions appropriately - Respiratory Respiratory exam: Present: CTAB. Absent: accessory muscle use, rales, rhonchi, wheezes - Cardiovascular Cardiovascular exam: Present: RRR, +S1, +S2. Absent: diastolic murmur, gallop, rubs, systolic murmur - GI/Abdominal GI/Abdominal exam: Present: normal bowel sounds, soft, tenderness (Generalized abdominal tenderness to palpation), no peritoneal signs Internal Medicine: Result - Labs CBC & Chem 7: 01/05/17 10:51 01/05/17 08:12 Labs: Short CBC 01/05/17 01/05/17 Range/Units 08:12 10:51 WBC 19.0 H D 20.0 H (4.3-11.1) K/mcL Hgb 15.3 15.0 (12.9-16.9) g/dL Hct 44.3 43.1 (37.5-50.1) % Plt Count 332 322 (140-400) K/mcL Neutrophils # 12.5 H 13.1 H (1.6-8.9) K/mcL BMP 01/05/17 08:12 Sodium 137 Potassium 4.3 Chloride 105 Carbon Dioxide 26 BUN 15 Creatinine 0.84 Glucose 116 H Calcium 8.7 Cardiac Enzymes 01/04/17 01/04/17 01/05/17 Range/Units 16:45 22:23 06:41 Troponin I 0.02 0.01 0.01 (0-0.03) ng/mL Liver Function 01/05/17 Range/Units 08:12 Total Bilirubin 2.4 H (0.2-1.2) mg/dL AST 21 (5-34) Units/L ALT 40 (0-55) Units/L Alkaline Phosphatase 115 (38-126) Units/L Albumin 2.9 L (3.5-5.0) g/dL - ABG Interpretation ABG results: PT/INR, D-dimer PT 12.5 Seconds (9.4-12.1) H 01/01/17 18:35 Consult Discharge Plan - Plan Additional Instructions: Follow-up appointments: If there is not an appointment listed below, please call your physician and schedule a follow-up appointment. If you have congestive heart failure and your symptoms return, make an appointment with your physician. Medication List: Carry an up to date list of medications you are taking at all time. We have given you an updated medication list including any new medications that you have been prescribed. Please provide that list to your primary provider Symptoms: If your condition changes or you experience any of the following symptoms, notify your physician immediately: Unusual or worsening pain, fever, persistent nausea and vomiting, bleeding, increase in swelling (especially in your legs), sudden weight gain, extreme dizziness, chest pain, increased drainage or redness from a wound or incision. Go to the emergency department if you experience a problem with breathing. Weights: If you have a history of swelling or shortness of breath, weigh yourself daily and notify your physician if you have a weight gain of two or more pounds in one day or 5 or more pounds in a week. If you experience any of the warning signs for stroke: Sudden numbness or weakness of the face, arm or leg; especially on one side of the body, sudden confusion, trouble speaking or understanding, sudden trouble seeing in one or both eyes, sudden trouble walking, dizziness, loss of balance or coordination, sudden sever headache with no cause; Call 911 or go to the emergency room. Stroke is a medical emergency. Some risk factors for stroke: Age, cigarette smoking, diabetes, excessive alcohol consumption, family history , high blood pressure, overweight, physical inactivity, prior stroke, heart attack, diagnosis of carotid artery stenosis or other artery disease. If you smoke, STOP: Smoking or tobacco use significantly increases your risk of heart and lung disease. Your chance of disease greatly increases if you continue to smoke. For more information, call the [place] tobacco quit line for smoking cessation -NOW ( ) Referrals: Kannan Grover MD [Primary Care Provider] - Lilly Caputo MD [Partnered Physician] -
[2017-01-05] MEDS: Piperacillin/Tazobactam 3.375 GM in D5% in Water (Mini-Bag+) 100 ML IVPB SCH (17:25)
[2017-01-06] MEDS: Ringers Solution, Lactated 1,000 ML IVC SCH (02:19)
[2017-01-06] MEDS: Piperacillin/Tazobactam 3.375 GM in D5% in Water (Mini-Bag+) 100 ML IVPB SCH ×3 (02:20→21:41)
[2017-01-06] MEDS ORDERED: Ondansetron 4 MG/2 ML VIAL ONE (03:18)
[2017-01-06] MEDS: Ondansetron 4 MG/2 ML VIAL IVP PRN ×2 (04:14→15:50)
[2017-01-06] MEDS: *HR* Heparin 5,000 UNIT/ML VIAL SQ SCH ×3 (05:53→21:42)
[2017-01-06] MEDS: Pantoprazole 40 MG VIAL IVP SCH ×2 (05:53→21:41)
[2017-01-06] MEDS: Aspirin Enteric Coated 81 MG Tablet PO SCH (07:52)
[2017-01-06] MEDS: Cholecalciferol (D-3) 1,000 UNIT TABLET PO SCH (07:52)
[2017-01-06 08:30] LABS: Basophils # 0.1 K/mcL (0.0-0.2); Basophils % 0.5 %; Eosinophils # 0.6 K/mcL (0.0-0.6); Eosinophils % 3.3 %; Hematocrit 43.3 % (37.5-50.1); Hemoglobin 14.6 g/dL (12.9-16.9); Immature Granulocytes % 0.4 % (0-4); Lymphocytes # 3.8 K/mcL (0.6-4.6); Lymphocytes % 20.5 %; Mean Corpuscular HGB Conc 33.7 g/dL (31.6-35.5); Mean Corpuscular Hemoglobin 32.4 pg (28.0-33.3); Mean Corpuscular Volume 96.2 fL (83.0-100.0); Mean Platelet Volume 10.8 fL (9.4-12.4); Monocytes # 1.8 K/mcL (0.0-1.3); Monocytes % 9.8 %; Neutrophils # 12.1 K/mcL (1.6-8.9); Nucleated Red Blood Cells 0.1 /100 WBC (0); Platelet Count 321 K/mcL (140-400); Red Cell Distribution Width 14.2 % (11.5-14.5); Segmented Neutrophils % 65.5 %
--- NOTE | 2017-01-06 11:57 | Gastroenterology Progress Note ---
<Verna Morrison - Last Filed: 01/06/17 15:25> Date of Encounter: 01/06/17 Time of Encounter: 11:00 - Assessment and plan (1) Choledocholithiasis Current Visit: Yes Status: Acute Assessment and plan: Pt is status post ERCP and removal of CBD stone, had CBD stent placed. He denies epigastric and chest pain. He has continued nausea and generalized abdominal pain. Continued on zofran and protonix. Plan to remove CBD stent in 2 months, will follow as outpatient. - Time Spent With Patient Total time spent is greater than 50% in coordination of care (as documented) at patient's floor/unit and/or counseling patient: - Subjective Interval history: Patient awake in bed, he continues to complain of bilateral lower abdominal pain , nausea without vomiting and diarrhea x 2 this morning. He denies epigastric or chest pain. - Constitutional Vitals: Temp Pulse Resp BP Pulse Ox 98.2 F 61 12 118/70 97 01/06/17 11:49 01/06/17 11:49 01/06/17 11:49 01/06/17 11:49 01/06/17 11:15 General appearance: Present: cooperative, A&O X 3, pleasant, no acute distress, obese, answers questions appropriately Exam: CONSTITUTIONAL:~alert, no acute distress.~HEAD:~normocephalic.~EYES:~no jaundice.~NECK:~no obvious swelling.~HEART:~regular rate and rhythm, no murmurs. ~LUNGS:~bilateral good air entry.~ABDOMEN:~non distended, soft, tender bl lower quadrants, no masses pulpable, no organomegaly.~RECTAL EXAM:~Deferred.~ EXTREMITIES:~no clubbing, cyanosis or edema.~SKIN:~pallor noted, no stigmata of chronic liver disease.~NEUROLOGIC:~no obvious focal defect.~~~~ Results - Labs CBC & Chem 7: 01/06/17 08:10 01/05/17 08:12 Labs: Last Result Calcium 8.7 mg/dL (8.6-10.8) 01/05/17 08:12 Troponin I 0.01 ng/mL (0-0.03) 01/05/17 06:41 Triglycerides 140 mg/dL (< 150) 01/02/17 00:38 Entire Visit Hgb 14.6 g/dL (12.9-16.9) 01/06/17 08:10 Hct 43.3 % (37.5-50.1) 01/06/17 08:10 PT 12.5 Seconds (9.4-12.1) H 01/01/17 18:35 Total Bilirubin 2.4 mg/dL (0.2-1.2) H 01/05/17 08:12 AST 21 Units/L (5-34) 01/05/17 08:12 ALT 40 Units/L (0-55) 01/05/17 08:12 Lipase 96 Units/L (8-78) H 01/05/17 14:54 - ABG ABG results: PT/INR, D-dimer PT 12.5 Seconds (9.4-12.1) H 01/01/17 18:35 Consult Discharge Plan - Plan Additional Instructions: Follow-up appointments: If there is not an appointment listed below, please call your physician and schedule a follow-up appointment. If you have congestive heart failure and your symptoms return, make an appointment with your physician. Medication List: Carry an up to date list of medications you are taking at all time. We have given you an updated medication list including any new medications that you have been prescribed. Please provide that list to your primary provider Symptoms: If your condition changes or you experience any of the following symptoms, notify your physician immediately: Unusual or worsening pain, fever, persistent nausea and vomiting, bleeding, increase in swelling (especially in your legs), sudden weight gain, extreme dizziness, chest pain, increased drainage or redness from a wound or incision. Go to the emergency department if you experience a problem with breathing. Weights: If you have a history of swelling or shortness of breath, weigh yourself daily and notify your physician if you have a weight gain of two or more pounds in one day or 5 or more pounds in a week. If you experience any of the warning signs for stroke: Sudden numbness or weakness of the face, arm or leg; especially on one side of the body, sudden confusion, trouble speaking or understanding, sudden trouble seeing in one or both eyes, sudden trouble walking, dizziness, loss of balance or coordination, sudden sever headache with no cause; Call 911 or go to the emergency room. Stroke is a medical emergency. Some risk factors for stroke: Age, cigarette smoking, diabetes, excessive alcohol consumption, family history , high blood pressure, overweight, physical inactivity, prior stroke, heart attack, diagnosis of carotid artery stenosis or other artery disease. If you smoke, STOP: Smoking or tobacco use significantly increases your risk of heart and lung disease. Your chance of disease greatly increases if you continue to smoke. For more information, call the [place] tobacco quit line for smoking cessation 0-183- -NOW ( ) Referrals: Kannan Grover MD [Primary Care Provider] - Lilly Caputo MD [Partnered Physician] - <Lilly Caputo - Last Filed: 01/06/17 21:53> Date of Encounter: 01/06/17 Time of Encounter: 14:00 - Time Spent With Patient Total time spent is greater than 50% in coordination of care (as documented) at patient's floor/unit and/or counseling patient: - Constitutional Vitals: Temp Pulse Resp BP Pulse Ox 98.6 F 68 16 109/70 93 01/06/17 20:23 01/06/17 20:23 01/06/17 20:23 01/06/17 20:23 01/06/17 20:23 Results - Labs CBC & Chem 7: 01/06/17 08:10 01/05/17 08:12 Labs: Last Result Calcium 8.7 mg/dL (8.6-10.8) 01/05/17 08:12 Troponin I 0.01 ng/mL (0-0.03) 01/05/17 06:41 Triglycerides 140 mg/dL (< 150) 01/02/17 00:38 Entire Visit Hgb 14.6 g/dL (12.9-16.9) 01/06/17 08:10 Hct 43.3 % (37.5-50.1) 01/06/17 08:10 PT 12.5 Seconds (9.4-12.1) H 01/01/17 18:35 Total Bilirubin 2.4 mg/dL (0.2-1.2) H 01/05/17 08:12 AST 21 Units/L (5-34) 01/05/17 08:12 ALT 40 Units/L (0-55) 01/05/17 08:12 Lipase 52 Units/L (8-78) 01/06/17 08:10 - ABG ABG results: PT/INR, D-dimer PT 12.5 Seconds (9.4-12.1) H 01/01/17 18:35 - Attending Attestation I examined this patient and my medical decision-making was reviewed with the Resident Physician. I agree with the documented findings, disposition and treatment plan as described except to the extent set forth below.
--- NOTE | 2017-01-06 19:12 | Internal Med Progress Note ---
Date of Encounter: 01/06/17 Time of Encounter: 11:00 - Assessment and plan (1) Epigastric abdominal pain Current Visit: Yes Status: Acute Assessment and plan: -ACS has been ruled out as patient has negative cardiac biomarkers and negative stress tests. -GI has been consulted with recommendations for MRCP due to elevated transaminases. -MRCP showed a 6 mm choledocholithiasis in the distal common bile duct. -ERCP was done on 01/03/17 for stone extraction. -Complaining of epigastric/chest discomfort and now with leukocytosis; he is afebrile -Blood cultures have been ordered and patient will be started on IV Zosyn. (2) Transaminitis Current Visit: Yes Status: Acute Assessment and plan: -Suspect secondary to the above. -LFTs have improved status post ERCP (3) Leukocytosis, unspecified Current Visit: Yes Status: Acute Assessment and plan: -Patient now with elevated white count from unknown etiology -He is status post ERCP for choledocholithiasis. -Patient's generalized abdominal discomfort has improved status post ERCP. -Cultures are pending and patient has been started on IV Zosyn day 2 -We will continue to monitor. Qualifiers: Leukocytosis type: unspecified Qualified Code(s): D72.829 - Elevated white blood cell count, unspecified (4) DVT prophylaxis Current Visit: Yes Status: Acute Assessment and plan: Subcutaneous heparin - Subjective Interval history: Patient this morning complaining of increase generalized abdominal discomfort. - Constitutional Vitals: Temp Pulse Resp BP Pulse Ox 98.5 F 72 16 106/76 91 01/06/17 15:46 01/06/17 15:46 01/06/17 15:46 01/06/17 15:46 01/06/17 15:46 General appearance: Present: A&O X 3, no acute distress, answers questions appropriately - Respiratory Respiratory exam: Present: CTAB. Absent: accessory muscle use, rales, rhonchi, wheezes - Cardiovascular Cardiovascular exam: Present: RRR, +S1, +S2. Absent: diastolic murmur, gallop, rubs, systolic murmur - GI/Abdominal GI/Abdominal exam: Present: soft, tenderness (Mild tenderness to palpation). Absent: distended, guarding Internal Medicine: Result - Labs CBC & Chem 7: 01/06/17 08:10 01/05/17 08:12 Labs: Short CBC 01/06/17 Range/Units 08:10 WBC 18.4 H (4.3-11.1) K/mcL Hgb 14.6 (12.9-16.9) g/dL Hct 43.3 (37.5-50.1) % Plt Count 321 (140-400) K/mcL Neutrophils # 12.1 H (1.6-8.9) K/mcL - ABG Interpretation ABG results: PT/INR, D-dimer PT 12.5 Seconds (9.4-12.1) H 01/01/17 18:35 - Impressions Impressions Abdomen Ultrasound 01/02/17 11:30 IMPRESSION: 1. Coarse liver echotexture which is nonspecific. Recommend correlation with any chronic underlying liver disease. 2. Mildly dilated common bile duct which is similar in appearance dating back to 07/25/2014 CT and likely related to postcholecystectomy changes. Findings can be correlated with LFTs. 3. Right renal cysts. D/ / 01/02/2017 12:41:38 Leonora Guzmán MD / jenny Interpreting Provider: Leonora Guzmán MD Abdomen MRI 01/02/17 15:00 IMPRESSION: 1. Mild biliary duct dilation with a 6 mm choledocholithiasis within the distal common bile duct. 2. 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 A few foci of side-branch ectasia are noted within the pancreas which can be seen as sequela of chronic pancreatitis. 3. Bilateral renal cysts. D/ / 01/02/2017 16:43:54 Leonora Guzmán MD / [email or web address] Interpreting Provider: Leonora Guzmán MD Cath/Invasive Procedure 01/03/17 13:05 IMPRESSION: Unremarkable ERCP images. Please refer to the procedure report for further details. D/ / 01/03/2017 15:31:33 Leonora Guzmán MD / saul Interpreting Provider: Leonora Guzmán MD Consult Discharge Plan - Plan Additional Instructions: Follow-up appointments: If there is not an appointment listed below, please call your physician and schedule a follow-up appointment. If you have congestive heart failure and your symptoms return, make an appointment with your physician. Medication List: Carry an up to date list of medications you are taking at all time. We have given you an updated medication list including any new medications that you have been prescribed. Please provide that list to your primary provider Symptoms: If your condition changes or you experience any of the following symptoms, notify your physician immediately: Unusual or worsening pain, fever, persistent nausea and vomiting, bleeding, increase in swelling (especially in your legs), sudden weight gain, extreme dizziness, chest pain, increased drainage or redness from a wound or incision. Go to the emergency department if you experience a problem with breathing. Weights: If you have a history of swelling or shortness of breath, weigh yourself daily and notify your physician if you have a weight gain of two or more pounds in one day or 5 or more pounds in a week. If you experience any of the warning signs for stroke: Sudden numbness or weakness of the face, arm or leg; especially on one side of the body, sudden confusion, trouble speaking or understanding, sudden trouble seeing in one or both eyes, sudden trouble walking, dizziness, loss of balance or coordination, sudden sever headache with no cause; Call 911 or go to the emergency room. Stroke is a medical emergency. Some risk factors for stroke: Age, cigarette smoking, diabetes, excessive alcohol consumption, family history , high blood pressure, overweight, physical inactivity, prior stroke, heart attack, diagnosis of carotid artery stenosis or other artery disease. If you smoke, STOP: Smoking or tobacco use significantly increases your risk of heart and lung disease. Your chance of disease greatly increases if you continue to smoke. For more information, call the [place] tobacco quit line for smoking cessation QUIT-NOW ( ) Referrals: Kannan Grover MD [Primary Care Provider] - Lilly Caputo MD [Partnered Physician] -
[2017-01-07] MEDS: Piperacillin/Tazobactam 3.375 GM in D5% in Water (Mini-Bag+) 100 ML IVPB SCH (04:21)
[2017-01-07] MEDS: *HR* Heparin 5,000 UNIT/ML VIAL SQ SCH ×3 (06:14→21:21)
[2017-01-07] MEDS: Pantoprazole 40 MG VIAL IVP SCH (06:14)
[2017-01-07] MEDS: Aspirin Enteric Coated 81 MG Tablet PO SCH (08:00)
[2017-01-07] MEDS: Cholecalciferol (D-3) 1,000 UNIT TABLET PO SCH (08:01)
--- NOTE | 2017-01-07 09:55 | Internal Med Progress Note ---
Date of Encounter: 01/07/17 Time of Encounter: 10:49 - Assessment and plan (1) Epigastric abdominal pain Current Visit: Yes Status: Acute Assessment and plan: ACS has been ruled out as patient has negative cardiac biomarkers and negative stress tests. GI was consulted with recommendations for MRCP due to elevated transaminases. MRCP showed a 6 mm choledocholithiasis in the distal common bile duct. ERCP was done on 01/03/17 for stone extraction. Patient developed leukocytosis post-procedure, possibly reactionary Blood cultures negative, patient is afebrile. Leukocytosis is improving. Chest , urinary, or GI symptoms. Discontinue Zosyn, changed to Cipro and Flagyl orally. Patient may be transferred out of to [facility] to a regular floor. (2) Transaminitis Current Visit: Yes Status: Resolved Assessment and plan: Resolved s/p ERCP with stent placement (3) Choledocholithiasis Current Visit: Yes Status: Resolved Assessment and plan: s/p ERCp with stone extraction and stent placement (4) DVT prophylaxis Current Visit: Yes Status: Acute Assessment and plan: Subcutaneous heparin (5) Leukocytosis, unspecified Current Visit: Yes Status: Acute Assessment and plan: As in abdominal pain. Qualifiers: Leukocytosis type: unspecified Qualified Code(s): D72.829 - Elevated white blood cell count, unspecified - Subjective Interval history: Seen and evaluated at bedside No new complains Ambulatory, and tolerating po Leukocytosis is improving, patient is afebrile, no abdominal pain, LFTs have improved - Constitutional Vitals: Temp Pulse Resp BP Pulse Ox 98.2 F 67 18 116/75 96 01/07/17 07:20 01/07/17 07:20 01/07/17 07:20 01/07/17 07:20 01/07/17 07:20 General appearance: Present: A&O X 3, no acute distress, answers questions appropriately - Head Head exam: Present: atraumatic, normocephalic - Eye Eye exam: Present: PERRL, conjuntiva pink, sclera anicteric Pupils: Present: PERRL - Neck Neck exam general surgery: Present: supple, trachea midline. Absent: lymphadenopathy - Respiratory Respiratory exam: Present: CTAB. Absent: accessory muscle use, rales, rhonchi, wheezes - Cardiovascular Cardiovascular exam: Present: RRR, +S1, +S2. Absent: diastolic murmur, gallop, rubs, systolic murmur - GI/Abdominal GI/Abdominal exam: Present: normal bowel sounds, soft, no peritoneal signs. Absent: distended, tenderness - Extremities Exam Extremities exam: Present: warm, radial pulses palpable and symmetrical. Absent : calf tenderness, cyanotic, pedal edema - Neurological Exam Neurological exam: Present: alert, CN II-XII intact, oriented X3, no focal deficits. Absent: pronater drift, facial droop, speech deficit - Skin Skin exam: Present: dry, intact Internal Medicine: Result - Labs CBC & Chem 7: 01/06/17 08:10 01/05/17 08:12 - ABG Interpretation ABG results: PT/INR, D-dimer PT 12.5 Seconds (9.4-12.1) H 01/01/17 18:35 Consult Discharge Plan - Plan Additional Instructions: Follow-up appointments: If there is not an appointment listed below, please call your physician and schedule a follow-up appointment. If you have congestive heart failure and your symptoms return, make an appointment with your physician. Medication List: Carry an up to date list of medications you are taking at all time. We have given you an updated medication list including any new medications that you have been prescribed. Please provide that list to your primary provider Symptoms: If your condition changes or you experience any of the following symptoms, notify your physician immediately: Unusual or worsening pain, fever, persistent nausea and vomiting, bleeding, increase in swelling (especially in your legs), sudden weight gain, extreme dizziness, chest pain, increased drainage or redness from a wound or incision. Go to the emergency department if you experience a problem with breathing. Weights: If you have a history of swelling or shortness of breath, weigh yourself daily and notify your physician if you have a weight gain of two or more pounds in one day or 5 or more pounds in a week. If you experience any of the warning signs for stroke: Sudden numbness or weakness of the face, arm or leg; especially on one side of the body, sudden confusion, trouble speaking or understanding, sudden trouble seeing in one or both eyes, sudden trouble walking, dizziness, loss of balance or coordination, sudden sever headache with no cause; Call 911 or go to the emergency room. Stroke is a medical emergency. Some risk factors for stroke: Age, cigarette smoking, diabetes, excessive alcohol consumption, family history , high blood pressure, overweight, physical inactivity, prior stroke, heart attack, diagnosis of carotid artery stenosis or other artery disease. If you smoke, STOP: Smoking or tobacco use significantly increases your risk of heart and lung disease. Your chance of disease greatly increases if you continue to smoke. For more information, call the [place] tobacco quit line for smoking cessation 9-468- -NOW ( ) Referrals: Kannan Grover MD [Primary Care Provider] - 01/14/17 2:00 pm () Los Diaz MD [Partnered Physician] - (CARDIOLOGY OFFICE WILL CALL WITH FOLLOW UP APPOINTMENT) Lilly Caputo MD [Partnered Physician] - ([employer] was sent, Therese Collazo sent me an email to claify why patient was being seen. Replied to email on 01-07-17 @ [id number])
[2017-01-07] MEDS: metroNIDAZOLE 500 MG TABLET PO SCH ×2 (14:37→21:21)
[2017-01-08] MEDS: *HR* Heparin 5,000 UNIT/ML VIAL SQ SCH (05:41)
[2017-01-08 06:50] LABS: Basophils # 0.1 K/mcL (0.0-0.2); Basophils % 0.7 %; Eosinophils # 1.2 K/mcL (0.0-0.6); Eosinophils % 9.4 %; Hematocrit 45.6 % (37.5-50.1); Hemoglobin 15.3 g/dL (12.9-16.9); Immature Granulocytes % 0.3 % (0-4); Lymphocytes # 3.2 K/mcL (0.6-4.6); Lymphocytes % 24.8 %; Mean Corpuscular HGB Conc 33.6 g/dL (31.6-35.5); Mean Corpuscular Hemoglobin 32.2 pg (28.0-33.3); Mean Platelet Volume 10.8 fL (9.4-12.4); Monocytes # 1.3 K/mcL (0.0-1.3); Monocytes % 10.1 %; Platelet Count 391 K/mcL (140-400); Red Blood Count 4.75 M/mcL (4.19-5.50); Red Cell Distribution Width 14.2 % (11.5-14.5); Segmented Neutrophils % 54.7 %
[2017-01-08 06:53] VITALS: BP 111/69
[2017-01-08] MEDS ORDERED: FLUARIX QUAD 2017-18 36MOS UP/PF 0.5 ML SYRINGE IM ONE (08:41)
--- NOTE | 2017-01-08 08:41 | Discharge Summary ---
Date of Encounter: 01/08/17 Time of Encounter: 08:41 - Discharge Diagnosis (1) Epigastric abdominal pain Priority: Primary Status: Resolved (2) Transaminitis Priority: Primary Status: Resolved (3) Choledocholithiasis Priority: Primary Status: Resolved (4) DVT prophylaxis Priority: Primary Status: Acute (5) Leukocytosis, unspecified Priority: Primary Status: Acute Qualifiers: Leukocytosis type: unspecified Qualified Code(s): D72.829 - Elevated white blood cell count, unspecified - Discharge Medications Prescriptions: Ciprofloxacin [Cipro] 250 mg PO BID #6 tablet metroNIDAZOLE [Flagyl] 500 mg PO TID #9 tablet Home Medications: Cholecalciferol (Vitamin D3) [Vitamin D3] 2,000 unit PO DAILY 01/09/15 [History] Aspirin Enteric Coated [Aspirin EC] 81 mg PO DAILY 01/01/17 [History] Atorvastatin Calcium [Lipitor] 20 mg PO HS 01/01/17 [History] Ciprofloxacin [Cipro] 250 mg PO BID #6 tablet 01/08/17 [Rx] metroNIDAZOLE [Flagyl] 500 mg PO TID #9 tablet 01/08/17 [Rx] Allergies/Adverse Reactions: 3 Allergy/AdvReac Type Severity Reaction Status Date / Time No Known Allergies Allergy Verified 01/09/15 13:57 Date of admission: 01/06/17 19:18 Primary care physician: Kannan Grover MD Discharging clinician: Lalo Meng Anticipated date of discharge: 01/08/17 - Patient Status Disposition: Home, Self-Care Condition: Good Functional capacity at discharge: independent ambulation Overall status at discharge: patient is back to baseline - Discharge Instructions Instructions: Chest Pain (DC) Follow Up With: Kannan Grover MD [Primary Care Provider] - 01/14/17 2:00 pm () Los Diaz MD [Partnered Physician] - (CARDIOLOGY OFFICE WILL CALL WITH FOLLOW UP APPOINTMENT) Lilly Caputo MD [Partnered Physician] - ([employer] was sent, Therese Collazo sent me an email to claify why patient was being seen. Replied to email on 01-07-17 @ [phone]) Additional Instructions: Follow-up appointments: If there is not an appointment listed below, please call your physician and schedule a follow-up appointment. If you have congestive heart failure and your symptoms return, make an appointment with your physician. Medication List: Carry an up to date list of medications you are taking at all time. We have given you an updated medication list including any new medications that you have been prescribed. Please provide that list to your primary provider Symptoms: If your condition changes or you experience any of the following symptoms, notify your physician immediately: Unusual or worsening pain, fever, persistent nausea and vomiting, bleeding, increase in swelling (especially in your legs), sudden weight gain, extreme dizziness, chest pain, increased drainage or redness from a wound or incision. Go to the emergency department if you experience a problem with breathing. Weights: If you have a history of swelling or shortness of breath, weigh yourself daily and notify your physician if you have a weight gain of two or more pounds in one day or 5 or more pounds in a week. If you experience any of the warning signs for stroke: Sudden numbness or weakness of the face, arm or leg; especially on one side of the body, sudden confusion, trouble speaking or understanding, sudden trouble seeing in one or both eyes, sudden trouble walking, dizziness, loss of balance or coordination, sudden sever headache with no cause; Call 911 or go to the emergency room. Stroke is a medical emergency. Some risk factors for stroke: Age, cigarette smoking, diabetes, excessive alcohol consumption, family history , high blood pressure, overweight, physical inactivity, prior stroke, heart attack, diagnosis of carotid artery stenosis or other artery disease. If you smoke, STOP: Smoking or tobacco use significantly increases your risk of heart and lung disease. Your chance of disease greatly increases if you continue to smoke. For more information, call the [place] tobacco quit line for smoking cessation QUIT-NOW ( ) - Diet and Activity Activity: resume usual activities as tolerated Diet: low salt diet Interval History: See below Hospital course: Mr. Clay is a 76 year old male with PMH of HLD He presented with abdominal pain which was concerning for acute coronary syndrome and anginal equivalent. ACS was ruled our as patient had negative biomarkers and stress test GI was consulted and MRCP was recommended,due to elevated transaminases. MRCP showed a 6 mm choledocholithiasis in the distal common bile duct. ERCP was done on 01/03/17 for stone extraction, stent placement and biliary sphincterotomy. Patient developed leukocytosis post-procedure, possibly reactionary. He is afebrile, ambulatory and tolerating po with normal BM He was started on Zosyn and blood cultures were drawn, he has remained asymptomatic and his abdominal pain has since resolved. His labs and vitals have been stable. His leukocytosis improved with antibiotics, blood culture was negative He is seen at bedside this morning, denies new complains, physical exam unremarkable He is stable to be discharged home on 3 more days of cipr/flagyl. Other chronic medical conditions remained stable Flu shot was recommended Follow up with PCP - Time Spent with Patient Total time spent providing and/or coordinating discharge services: Greater than 30 minutes - Constitutional Vitals: Temp Pulse Resp BP Pulse Ox 97.4 F L 93 17 111/69 92 01/08/17 06:49 01/08/17 06:49 01/08/17 06:49 01/08/17 06:49 01/08/17 06:49 General appearance: Present: A&O X 3, pleasant, no acute distress, answers questions appropriately - Head Head exam: Present: atraumatic, normocephalic - Eye Eye exam: Present: PERRL, conjuntiva pink, sclera anicteric Pupils: Present: PERRL - Neck Neck exam general surgery: Present: supple, trachea midline. Absent: lymphadenopathy - Respiratory Respiratory exam: Present: CTAB. Absent: accessory muscle use, rales, rhonchi, wheezes - Cardiovascular Cardiovascular exam: Present: RRR, +S1, +S2. Absent: diastolic murmur, gallop, rubs, systolic murmur - GI/Abdominal GI/Abdominal exam: Present: normal bowel sounds, soft, no peritoneal signs. Absent: distended, tenderness - Extremities Exam Extremities exam: Present: warm, radial pulses palpable and symmetrical. Absent : calf tenderness, cyanotic, pedal edema - Neurological Exam Neurological exam: Present: alert, CN II-XII intact, oriented X3, no focal deficits. Absent: pronater drift, facial droop, speech deficit - Skin Skin exam: Present: dry, intact
[2017-01-08] MEDS: Cholecalciferol (D-3) 1,000 UNIT TABLET PO SCH (09:22)
[2017-01-08] MEDS: Aspirin Enteric Coated 81 MG Tablet PO SCH (09:22)
[2017-01-08] MEDS: metroNIDAZOLE 500 MG TABLET PO SCH (09:22)
== END 2017-01-08 10:21 | disposition home or self-care (01) | DRG 446 ==
LOC: EMEROO 18:17 → 3NENU 18:17 → SUATTDRO 22:01 → 3NENU 22:18 → 2NNU 01-04 19:08 → SUATTDRO 01-06 19:18 → 3ANU 01-07 15:18
PROVIDERS: ADMIT Internal Medicine; ATTEND Internal Medicine

== ENCOUNTER 2018-03-06 12:33 | Inpatient (IN) ==
[2018-03-06] MEDS ORDERED: Aspirin 325 MG TABLET PO ONE (13:04)
--- NOTE | 2018-03-06 13:05 | Emergency Department Note ---
Disposition Clinical Impression: Stroke Qualifiers: CVA mechanism: unspecified Qualified Code(s): I63.9 - Cerebral infarction, unspecified Disposition: Admitted As Inpatient Condition: Good General Adult HPI - General Chief complaint: ED Altered Mental Status Stated complaint: Stroke earlier Time Seen by Provider: 03/06/18 12:38 Source: patient Limitations: no limitations Nursing Notes Reviewed: Yes Vital Signs Reviewed: Yes - History of Present Illness HPI Narrative: Patient sent to the emergency department by director of marketing and promotions, Dr. Arrieta. Patient had been evaluated on Friday for right sided vision loss. Patient was found to have what was initially thought pain ophthalmologic problem. Seen by Dr. Arrieta and MRI of the head and orbits ordered. Results show 2 different areas of stroke. On exam the patient has very limited vision in the right eye and is only able to see large objects but is not able to differentiate fingers held with in front of his face. He has right face right arm and right leg sensation deficits as well as weakness to the right arm and the right leg. He states that these were not appreciated until I did my exam. Does not know how long the symptoms been going on for. Patient was diagnosed with A. fib at PCPs office. During his visit with the emergency department he was found to be in sinus rhythm. Today we will further evaluate for concern for A. fib. He has not started any anticoagulation. He does take a daily low-dose aspirin. Patient will undergo further evaluation with blood work. Patient be admitted for further workup. Pain Scale: 0 - Related Data Home Medications Medication Instructions Recorded Confirmed Cholecalciferol (Vitamin D3) 2,000 unit PO DAILY 01/09/15 03/04/18 [Vitamin D3] Atorvastatin Calcium [Lipitor] 20 mg PO HS 01/01/17 03/04/18 Aspirin [Lo-Dose Aspirin EC] 81 mg PO DAILY 03/20/17 03/04/18 Metoprolol XL (24 HR) Succ [Toprol 25 mg PO DAILY 03/04/18 03/04/18 XL] Allergies Allergy/AdvReac Type Severity Reaction Status Date / Time No Known Allergies Allergy Verified 01/29/18 10:11 All systems ED: reviewed and negative except as stated. Review of Systems: As Per HPI Constitutional: Denies: fever, chills Eyes: Reports: vision change ENT ED: Denies: congestion Cardiovascular: Denies: chest pain, palpitations Respiratory: Denies: cough, dyspnea Gastrointestinal: Denies: abdominal pain, nausea Genitourinary: Denies: urgency, dysuria Musculoskeletal: Denies: back pain Integumentary: Denies: rash, abrasion Neurological: Reports: weakness, numbness. Denies: headache Endocrine: Denies: fatigue Past Medical History - Past Medical History Medical history: Reports: no medical history, arthritis, hyperlipidemia, other Surgical history: Reports: cholecystectomy, herniorrhaphy, orthopedic, other, splenectomy, other Psychiatric history: Reports: no psych history - Social History Smoking Status: Never smoker Smokeless Tobacco Status: No Alcohol use: Reports: none Drug use: Reports: none Physical Exam - General Limitations: no limitations General appearance: alert - Head Head exam: atraumatic, normocephalic - Eye Eye exam: Present: normal appearance, PERRL. Absent: EOMI (Patient cannot look laterally with the right eye) - ENT ENT exam: normal exam - Neck Neck exam: Present: normal inspection - Chest Chest inspection: Present: normal inspection. Absent: symmetric chest wall rise - Respiratory Respiratory exam: Present: normal lung sounds bilaterally. Absent: respiratory distress, wheezes - Cardiovascular Cardiovascular exam: Present: regular rate, irregular rhythm - Abdominal Exam Abdominal exam: Present: soft, Non-Tender - Extremities Exam Extremities exam: Present: normal inspection, full ROM - Neurological Exam Neurological exam: Present: alert, other (Oriented to person and place but not time) - Expanded Neurological Exam Patient oriented to: Present: person, place. Absent: time Speech: Present: fluid speech Cranial nerves: EOM function (II, III, IV, ): Abnormal Right, facial sensation (V): Abnormal Right, facial palsy (VII): Normal, gag reflex (IX): Normal, spinal accessory function (XI): Normal, tongue deviation (XII): Normal Motor strength - LUE: 5/5 Motor strength - RUE: 4/5 Motor strength - LLE: 5/5 Motor strength - RLE: 4/5 Sensory exam upper extremity: light touch: Abnormal Right Sensory exam lower extremity: light touch: Abnormal Right Coma Scale Eye Opening: Spontaneous Coma Scale Motor Response: Obeys Commands Coma Scale Verbal Response: Oriented Coma Scale Total: 15 - Psychiatric Psychiatric exam: Present: flat affect - Skin Skin exam: Present: warm, dry, intact Course Course Narrative: Patient with diagnosis of stroke on outpatient MRI. Workup initiated in the ED. Full dose aspirin given. Neurology and hospitalist been paged. Patient will be admitted for further workup. - Consultations Consultation #1: Discussed with hospitalist. Patient accepted for admission. Consultation #2: Discussed with neurology, Dr. Castellano, patient is okay for anticoagulation from his standpoint. Will consult on the floor. Vital Signs Temperature 97.9 F 03/06/18 12:45 Pulse Rate 53 03/06/18 12:45 Respiratory Rate 17 03/06/18 12:45 Blood Pressure 143/75 03/06/18 12:45 O2 Sat by Pulse Oximetry 99 03/06/18 12:45 Temperature 97.9 F 03/06/18 12:51 Pulse Rate 65 03/06/18 14:16 Respiratory Rate 20 03/06/18 14:16 Blood Pressure 135/69 03/06/18 14:16 O2 Sat by Pulse Oximetry 95 03/06/18 14:16 Oxygen Delivery Oxygen Delivery Room Air Medical Decision Making - Lab Data Result diagrams: 03/06/18 12:51 03/06/18 12:51 Lab Results 03/06/18 03/06/18 03/06/18 Range/Units 12:51 12:51 12:51 WBC 8.5 (4.3-11.1) K/mcL RBC 4.55 (4.19-5.50) M/mcL Hgb 14.5 (12.9-16.9) g/dL Hct 44.4 (37.5-50.1) % MCV 97.6 (83.0-100.0) fL MCH 31.9 (28.0-33.3) pg MCHC 32.7 (31.6-35.5) g/dL RDW 13.5 (11.5-14.5) % Plt Count 330 (140-400) K/mcL MPV 10.4 (9.4-12.4) fL Immature Gran % 0.2 (0-4) % Seg Neutrophils % 52.0 % Lymphocytes % 32.7 % Monocytes % 10.6 % Eosinophils % 3.3 % Basophils % 1.2 % Neutrophils # 4.4 (1.6-8.9) K/mcL Lymphocytes # 2.8 (0.6-4.6) K/mcL Monocytes # 0.9 (0.0-1.3) K/mcL Eosinophils # 0.3 (0.0-0.6) K/mcL Basophils # 0.1 (0.0-0.2) K/mcL PT 13.4 H (9.4-12.1) Seconds INR 1.2 APTT 34.6 (26.0-36.0) Seconds Sodium 138 (136-145) mEq/L Potassium 3.8 (3.5-5.1) mEq/L Chloride 106 (98-107) mEq/L Carbon Dioxide 28 (23-29) mEq/L BUN 13 (8-23) mg/dL Creatinine 0.80 (0.70-1.30) mg/dL Est GFR ( Amer) > 60 (> 60) Est GFR (Non-Af Amer) > 60 (> 60) BUN/Creatinine Ratio 16 (6-26) Glucose 98 (70-105) mg/dL Calculated Osmolality 286 (280-300) Calcium 8.9 (8.6-10.3) mg/dL Troponin I < 0.03 (< 0.04) ng/mL
[2018-03-06 13:11] LABS: Basophils # 0.1 K/mcL (0.0-0.2); Basophils % 1.2 %; Eosinophils # 0.3 K/mcL (0.0-0.6); Eosinophils % 3.3 %; Hematocrit 44.4 % (37.5-50.1); Hemoglobin 14.5 g/dL (12.9-16.9); Immature Granulocytes % 0.2 % (0-4); Lymphocytes # 2.8 K/mcL (0.6-4.6); Lymphocytes % 32.7 %; Mean Corpuscular HGB Conc 32.7 g/dL (31.6-35.5); Mean Corpuscular Hemoglobin 31.9 pg (28.0-33.3); Mean Corpuscular Volume 97.6 fL (83.0-100.0); Mean Platelet Volume 10.4 fL (9.4-12.4); Monocytes # 0.9 K/mcL (0.0-1.3); Monocytes % 10.6 %; Neutrophils # 4.4 K/mcL (1.6-8.9); Platelet Count 330 K/mcL (140-400); Red Blood Count 4.55 M/mcL (4.19-5.50); Red Cell Distribution Width 13.5 % (11.5-14.5)
[2018-03-06 13:28] LABS: BUN/Creatinine Ratio 16 (6-26); Blood Urea Nitrogen 13 mg/dL (8-23); Calcium 8.9 mg/dL (8.6-10.3); Carbon Dioxide 28 mEq/L (23-29); Chloride 106 mEq/L (98-107); Glucose 98 mg/dL (70-105); Osmolality,Calculated 286 (280-300); Potassium 3.8 mEq/L (3.5-5.1); Sodium 138 mEq/L (136-145); eGFR For Non-African Americans > 60 (> 60)
[2018-03-06 13:29] LABS: Troponin I < 0.03 ng/mL (< 0.04)
[2018-03-06 13:37] LABS: INR 1.2; Prothrombin Time 13.4 Seconds (9.4-12.1)
[2018-03-06 13:40] LABS: Activated Partial Thrombo Time 34.6 Seconds (26.0-36.0)
--- NOTE | 2018-03-06 14:27 | Internal Med History&Physical ---
<Olvin Napier - Last Filed: 03/06/18 14:33> Date of Encounter: 03/06/18 Time of Encounter: 13:30 Internal Medicine - H&P: HPI Chief complaint: loss of vision in right eye Admitted From: Home Plans for Post Hospital Care: Home History of present illness: Mr. Clay is a 77 year old male with past medical history of hypertension, hyperlipidemia, prediabetes, GERD, vitamin D deficiency, degenerative disc disease, choledocholithiasis and recent biliary stent removal presents to the emergency department with decreased vision in the right eye. Mr. Clay was seen in his primary care provider's office 03/03/2018 for a follow-up 6 month visit at that time he is found to be in atrial fibrillation started on metoprolol and a prescription was sent for Xarelto. 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 He will present emergency department and was found to have visual loss in the right eye, underwent endoscopy evaluation which was recorded as normal, CT of the head was normal and he was referred to the rental counter clerk Dr. Arrieta's office for further evaluation. After evaluation from the rental counter clerk an MRI of the brain was ordered which he completed today and before arriving home was called and told to go the emergency department as he had findings of strokes. Mr. Clay states that he has noticed loss in the right side of his right eye unable to read things well and has to squint to try to make out shapes out of his right eye. His was at bedside mentions that his thought process is been slower and is been slower to react since Friday evening when he had his visual loss. Mr. Clay states that weakness in his right arm and right leg has been present for a long period of time, at least several months that he has not had evaluated or talked with anybody about it. He denies any other concerning symptoms or noticeable signs. Denies any lightheadedness or dizziness, difficulty with his hearing from baseline, difficulty swallowing, choking or coughing, denies any chest pains,or palpitations, abdominal pains, nausea vomiting diarrhea constipation, difficulty with bladder or bowel control. Denies frequent falling or difficulty with handwriting or eating. Past Med Surg Social Fam HX - Past Medical History Medical history: no medical history, arthritis, hyperlipidemia, other Additional medical history: hematuria, stomach ulcer, hernia Psychiatric history: no psych history - Past Surgical History Surgical History: cholecystectomy, herniorrhaphy, orthopedic, other, splenectomy, other Additional surgical history: ercp - Social History Smoking Status: Never smoker Smokeless Tobacco Status: No Alcohol use: none Drug use: none - Family History Father Living Status: Hx Family Respiratory Disorders: Yes (emphysema) Sister Living Status: Hx Family Cancer: Yes Hx Family GI Disorders: Yes Mother Living Status: Hx Family GI Disorders: Yes (colitis) Internal Medicine - H&P: Meds Cholecalciferol (Vitamin D3) [Vitamin D3] 2,000 unit PO DAILY 01/09/15 [History] Atorvastatin Calcium [Lipitor] 20 mg PO HS 01/01/17 [History] Aspirin [Lo-Dose Aspirin EC] 81 mg PO DAILY 03/20/17 [History] Metoprolol XL (24 HR) Succ [Toprol XL] 25 mg PO DAILY 03/04/18 [History] Allergy/AdvReac Type Severity Reaction Status Date / Time No Known Allergies Allergy Verified 01/29/18 10:11 All Systems PM: A 10-system review of systems was performed and is negative for pertinent findings except as documented above in the HPI. Review of systems: Positive for visual changes in right eye, difficulty with thought process, right-sided weakness Denies any lightheadedness or dizziness, difficulty with his hearing from baseline, difficulty swallowing, choking or coughing, denies any chest pains,or palpitations, abdominal pains, nausea vomiting diarrhea constipation, difficulty with bladder or bowel control. Denies frequent falling or difficulty with handwriting or eating. - Constitutional Vitals: Temp Pulse Resp BP Pulse Ox 97.9 F 65 20 135/69 95 03/06/18 12:51 03/06/18 14:16 03/06/18 14:16 03/06/18 14:16 03/06/18 14:16 Exam: Gen. 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 Neuro: Patient's demonstrates difficulty with memory and demonstrate slow responses, when asked to move either his right arm or right leg it takes him several seconds to demonstrate a motor response or a verbal response (concerning of right-sided coleen-neglect), pupils equal reactive to light, patient does not pass midline with his eyes looking to the right, lack of of upper gaze or downward gaze. Visual field defects along the right-sided superior and lateral visual fox with the right eye. Facial muscles intact, tongue protrudes midline, uvula midline, speech is slow, memory is poor. Patient has 5 out of 5 muscle strength in left upper and lower extremities with intact finger to nose and heel to null using the left extremities, patient has a ataxic [id number] using the right upper extremity, patient demonstrates pronator drift with the right upper extremity with weakness obvious compared to the left, right lower extremity demonstrates right foot drop and right lower extremities weakness. Diminished brachial and patellar reflexes on the right, intact on the left. Internal Med - H&P Results - Labs CBC & Chem 7: 03/06/18 12:51 03/06/18 12:51 Labs: Short CBC 03/06/18 Range/Units 12:51 WBC 8.5 (4.3-11.1) K/mcL Hgb 14.5 (12.9-16.9) g/dL Hct 44.4 (37.5-50.1) % Plt Count 330 (140-400) K/mcL Neutrophils # 4.4 (1.6-8.9) K/mcL BMP 03/06/18 12:51 Sodium 138 Potassium 3.8 Chloride 106 Carbon Dioxide 28 BUN 13 Creatinine 0.80 Glucose 98 Calcium 8.9 Cardiac Enzymes 03/06/18 Range/Units 12:51 Troponin I < 0.03 (< 0.04) ng/mL - Impressions ITS Impressions Chest X-Ray 03/06/18 12:45 IMPRESSION: Increased interstitial markings may relate to chronic interstitial change or mild interstitial edema. D/ / Hernesto Alexis MD / Hernesto Alexis MD Interpreting Provider: Hernesto Alexis MD - Assessment and plan (1) Thrombotic cerebral infarction Current Visit: Yes Status: Acute Assessment and plan: Patient sent to the emergency department after MRI of the brain demonstrates acute to subacute infarct in the left occipital lobe posterior medial left temporal lobe and the left REG[employer] [place] territory, any focus of acute to subacute infarct in the posterior frontal lobe and the left MCA territory, tiny focus of subacute infarct in the posterior left frontal centrum semiovale. - Patient was recently diagnosed with atrial fibrillation in the outpatient setting on 03/03/2018 had yet to start his anticoagulation, EKG reviewed demonstrating atrial fibrillation - Changes since his evaluation 03/03/2018 resulted in visual field losses in the right superior and lateral. - Patient states that he has had right-sided weakness in his arm and right leg for some time. - No previous anticoagulation - Given the patient's history of previous right-sided weakness he may have had proximal atrial fibrillation for some time and has had previous infarcts that were not worked up. It just so happens that he is found to have atrial fibrillation on the developing visual field loss on the 05 of March. Plan: - On evaluation today he is outside of TPA window. - We will increase his atorvastatin to 80 mg by mouth, he is currently rate controlled and in sinus rhythm we will continue beta suraj - NIH stroke scale evaluation inpatient - Echocardiogram - Cardiac monitoring - Carotid Dopplers - We will start heparin drip until appropriate anticoagulation is evaluated. Patient was supposed to start surrounding toe but it was too expensive for him to afford. - Swallow evaluation - Physical therapy, occupational therapy - Neurology consult Qualifiers: Precerebral and cerebral artery: posterior cerebral artery Laterality of affected vessel: left Qualified Code(s): I63.332 - Cerebral infarction due to thrombosis of left posterior cerebral artery (2) Right sided weakness Current Visit: Yes Status: Acute Assessment and plan: Patient states that right-sided weakness has been there for months. - According to patient this is not since he had visual loss and may indicate that he has had previous thrombotic strokes. - Physical therapy/occupational therapy (3) Paroxysmal A-fib Current Visit: Yes Status: Acute Assessment and plan: Patient is found to be in atrial fibrillation the outpatient setting, EKGs from 02/03/2018 and today demonstrate sinus rhythm with occasional PACs - We will continue metoprolol for rate control - Heparin drip until appropriate anticoagulation is determined. [id number]: 4 (4) Prediabetes Current Visit: Yes Status: Acute Assessment and plan: monitor glucose inpatient and correct if necessary (5) Hyperlipidemia Current Visit: No Status: Acute Assessment and plan: Known Hx will obrtain lipid panel. Qualifiers: Hyperlipidemia type: unspecified Qualified Code(s): E78.5 - Hyperlipidemia, unspecified (6) Visual acuity reduced Current Visit: No Status: Acute Assessment and plan: Right visual field loss since Wed Correlating with MRI stroke pattern. (7) DVT prophylaxis Current Visit: Yes Status: Acute Assessment and plan: Patient on Heparin Drip. - Time Spent With Patient Total time spent is greater than 50% in coordination of care (as documented) at patient's floor/unit and/or counseling patient: <Sr Ericabrandi - Last Filed: 03/06/18 15:53> Date of Encounter: 03/06/18 Time of Encounter: 14:30 Internal Medicine - H&P: HPI Admitted From: Home History of present illness: Mr. Clay is a 77 year old male Past Med Surg Social Fam HX - Past Medical History Attestation: Yes The following information was validated with the patient. All Systems PM: A 10-system review of systems was performed and is negative for pertinent findings except as documented above in the HPI. - Constitutional Constitutional: no chills, no fever(s), no night sweats - EENT Eyes: change in vision Ears: no ear discharge, no ear pain, no tinnitus Nose, mouth and throat: no dysphagia, no nasal discharge, no neck pain, no sore throat - Cardiovascular Cardiovascular ROS IM: no chest pain, no diaphoresis, no dyspnea, no lightheadedness, no palpitations, no syncope - Respiratory Respiratory: no cough, no dyspnea, no wheezing, no excessive phlegm production - Gastrointestinal Gastrointestinal: no abdominal pain, no diarrhea, no hematemesis, no hematochezia, no melena, no nausea, no vomiting - Musculoskeletal Musculoskeletal ROS IM: no numbness, no tingling - Neurological Neurological ROS: no confusion, no convulsions, no focal weakness, no numbness, no tingling, no tremor(s) - Constitutional Vitals: Temp Pulse Resp BP Pulse Ox 97.9 F 65 20 135/69 95 03/06/18 12:51 03/06/18 14:16 03/06/18 14:16 03/06/18 14:16 03/06/18 14:16 Internal Med - H&P Results - Labs CBC & Chem 7: 03/06/18 12:51 03/06/18 12:51 Labs: Short CBC 03/06/18 Range/Units 12:51 WBC 8.5 (4.3-11.1) K/mcL Hgb 14.5 (12.9-16.9) g/dL Hct 44.4 (37.5-50.1) % Plt Count 330 (140-400) K/mcL Neutrophils # 4.4 (1.6-8.9) K/mcL BMP 03/06/18 12:51 Sodium 138 Potassium 3.8 Chloride 106 Carbon Dioxide 28 BUN 13 Creatinine 0.80 Glucose 98 Calcium 8.9 Cardiac Enzymes 03/06/18 Range/Units 12:51 Troponin I < 0.03 (< 0.04) ng/mL - Impressions ITS Impressions Chest X-Ray 03/06/18 12:45 IMPRESSION: Increased interstitial markings may relate to chronic interstitial change or mild interstitial edema. D/ / Hernesto Alexis MD / Hernesto Alexis MD Interpreting Provider: Hernesto Alexis MD - Assessment and plan (1) Thrombotic cerebral infarction Current Visit: Yes Status: Acute Qualifiers: Precerebral and cerebral artery: posterior cerebral artery Laterality of a ffected vessel: left Qualified Code(s): I63.332 - Cerebral infarction due to thrombosis of left posterior cerebral artery (2) Hyperlipidemia Current Visit: No Status: Acute Qualifiers: Hyperlipidemia type: unspecified Qualified Code(s): E78.5 - Hyperlipidemia, unspecified (3) Visual acuity reduced Current Visit: No Status: Acute (4) Right sided weakness Current Visit: Yes Status: Acute (5) Paroxysmal A-fib Current Visit: Yes Status: Acute (6) Prediabetes Current Visit: Yes Status: Acute (7) DVT prophylaxis Current Visit: Yes Status: Acute - Time Spent With Patient Total time spent is greater than 50% in coordination of care (as documented) at patient's floor/unit and/or counseling patient: - Attending Attestation I saw evaluated and examined this patient and my medical decision-making was reviewed with the Resident Physician, Olvin Napier. I agree with the documented findings, disposition and treatment plan as described except to any changes set forth below. We independently had [id number] contact with the patient. 77-year-old male patient with history of hypertension, hyperlipidemia, prediabetes, who was sent over from ophthalmologists office for concerns for acute stroke. Patient's symptoms initially began on the with symptoms of vision changes involving the right eye that morning after shower. When he sat down to read the newspaper he realized that he could not reach the right half of the newspaper. He reports that he woke up feeling fine in the morning and did not notice any deficits prior to that. He has chronic right-sided weakness and right-sided facial numbness ever since for several months now. He does not recollect having a prior stroke. On Friday he was seen by his primary care provider for 6 month follow-up visit and at that time he was noted to be in atrial fibrillation. A prescription for Xarelto was sent it was costing him too much so he did not pick it up. His symptoms began the next day. She then came to the ER. He was evaluated with a head CT and then sent for follow-up with an rental counter clerk. Front Office Medical Assistant ordered an MRI of the brain and the orbit. The MRI showed infarctions in the left occipital lobe and posterior medial left temporal lobe in the left [place] territory and a focus of acute to subacute infarction in the posterior frontal lobe and the left MCA territory. General: Patient is alert, no acute distress, oriented x 3 Head: atraumatic, normocephalic, ENT: Mucous membranes moist Eye: normal appearance, PERRL, no scleral icterus, no conjunctival injection Neck: normal inspection, trachea midline, full ROM, no carotid bruits Chest: normal inspection, symmetric chest rise Respiratory: Good respiratory effort. Normal breath sounds. No wheezing or crackles. Cardiovascular: Regular rate and rhythm. s1 and s2 normal No clicks, rubs, ga llops, or murmurs. No pedal edema Abdomen: Abdomen is soft, nontender. Bowel sounds are present Musculoskeletal: Spontaneously moving all extremities Skin: warm, dry, intact. Neuro: Alert oriented x 3 decreased sensation on the right side of the face. Right-sided hemiplegia with right-sided neglect. Patient has chronic right- sided weakness of his right upper and lower extremity. Strength 4 /5 on the right side. 5 / 5 in the left side. Cranial nerves other than right second nerve normal. Psych: Patient's affect is normal Acute stroke: Likely embolic. Will place patient on IV heparin. Consult neurology. Stroke workup. Telemetry. Patient is currently in sinus rhythm. Does have underlying first-degree A-V block per EKG. Aspirin, statin. PTOT consult. Atrial fibrillation: Paroxysmal. Currently in sinus rhythm with first-degree AV block. Anticoagulation with IV heparin for now. Eventually patient will be transitioned to oral anticoagulation. We will need to sharp check on DOAC agents prior to discharge. Essential hypertension: Monitor blood pressure. Continue home medications. Prediabetes: Check A1c level. Monitor blood sugars. DVT prophylaxis: Patient will be on IV heparin.
[2018-03-06] MEDS ORDERED: Acetaminophen 325 MG TABLET PO PRN (14:59)
[2018-03-06] MEDS ORDERED: Naloxone 0.4 MG/ML INJ IVP PRN (14:59)
[2018-03-06] MEDS ORDERED: *HR* Heparin 5,000 UNIT/ML VIAL IVP ONE (15:01)
[2018-03-06] MEDS ORDERED: *HR* Heparin 5,000 UNIT/ML VIAL IVP PRN ×2 (15:01)
[2018-03-06 16:15] LABS: Hematocrit 41.9 % (37.5-50.1); Hemoglobin 14.1 g/dL (12.9-16.9); Mean Corpuscular HGB Conc 33.7 g/dL (31.6-35.5); Mean Corpuscular Hemoglobin 32.3 pg (28.0-33.3); Mean Corpuscular Volume 96.1 fL (83.0-100.0); Mean Platelet Volume 10.3 fL (9.4-12.4); Platelet Count 323 K/mcL (140-400); Red Blood Count 4.36 M/mcL (4.19-5.50); Red Cell Distribution Width 13.6 % (11.5-14.5)
[2018-03-06 16:19] LABS: INR 1.2; Prothrombin Time 13.7 Seconds (9.4-12.1)
[2018-03-06] MEDS: Heparin 25,000 UNIT/500 ML D5W 25,000 UNIT/500 ML BAG IVC SCH (17:27)
[2018-03-06] MEDS: 0.9 % Sodium Chloride 1,000 ML IVC SCH (17:35)
[2018-03-07 05:31] LABS: Bilirubin,Urine Negative (Negative); Blood,Urine Large (Negative); Clarity,Urine Clear (Clear); Color,Urine Yellow (Yellow); Glucose,Urine (UA) Normal (Normal); Ketones,Urine Negative (Negative); Leukocyte Esterase,Urine Negative (Negative); Nitrite,Urine Negative (Negative); PH,Urine 6.5 pH Units (5.0-8.0); Protein,Urine Negative (Neg-Trace); Specific Gravity,Urine 1.009 (1.010-1.025); Urobilinogen,Urine Normal (Normal)
[2018-03-07 05:34] LABS: Bacteria,Urine None Seen per hpf (None-Few); Hyaline Casts,Urine None Seen per lpf (None-Few); RBC,Urine 50-100 per hpf (0-3); Squamous Epithelial Cell,Urine None Seen per lpf (None-Few); WBC,Urine 0-3 per hpf (0-3)
[2018-03-07 06:50] LABS: INR 1.4; Prothrombin Time 15.5 Seconds (9.4-12.1)
[2018-03-07 07:05] LABS: Troponin I < 0.03 ng/mL (< 0.04)
[2018-03-07 07:06] LABS: Alanine Aminotransferase 16 Units/L (7-52); Albumin 3.2 g/dL (3.5-5.7); Albumin/Globulin Ratio 1.3 (1.1-2.2); Alkaline Phosphatase 81 Units/L (34-104); Aspartate Amino Transferase 17 Units/L (13-39); BUN/Creatinine Ratio 22 (6-26); Bilirubin,Total 1.6 mg/dL (0.3-1.0); Blood Urea Nitrogen 15 mg/dL (8-23); Calcium 8.5 mg/dL (8.6-10.3); Carbon Dioxide 23 mEq/L (23-29); Chloride 108 mEq/L (98-107); Chol/HDL Ratio 2.5 (0-4.9); Cholesterol 91 mg/dL (< 200); Globulin 2.5 g/dL (2.4-3.5); Glucose 100 mg/dL (70-105); HDL Cholesterol 36 mg/dL (40-59); LDL Cholesterol,Calculated 44 mg/dL (0-99); Osmolality,Calculated 287 (280-300); Sodium 138 mEq/L (136-145); Total Protein 5.7 g/dL (6.4-8.9); Triglycerides 53 mg/dL (< 150); eGFR For Non-African Americans > 60 (> 60)
[2018-03-07 07:19] LABS: Thyroid Stimulating Hormone 3.458 mcIU/mL (0.340-5.600)
[2018-03-07 07:28] LABS: Folate 7.2 ng/mL (3.0-16.0)
[2018-03-07] MEDS: 0.9 % Sodium Chloride 1,000 ML IVC SCH ×2 (08:11→20:46)
[2018-03-07] MEDS: Aspirin Enteric Coated 81 MG Tablet PO SCH (08:11)
--- NOTE | 2018-03-07 10:31 | Electrophysiology Consult Note ---
Date of Encounter: 03/07/18 Time of Encounter: 10:27 Assessment and Plan (1) Paroxysmal A-fib Current Visit: Yes Status: Acute Uncertain duration but likely has longstanding PAF, likely etiology of stroke. Would check echo, continue BBlocker, needs chcf anticoagulation. Discussion w patient/family: The assessment and plan as outlined above was discussed with the patient and/or family members who expressed understanding and agreement. All questions were answered. Thank you for involving us in the care of your patient. Please call with any questions. History of Present Illness Consult date: 03/07/18 Requesting physician: Ness Maldonado Consult reason: PAF Chief complaint: CVA History of present illness: Mr. Clay is a 77 year old male with multiple medical problems who presented after an MRI revealed a subacute stroke. He had previously been diagnosed with AF as an outpt. and was started on anticoagulation but had not yet filled the prescription. We are now asked to consult on his AF. He is unsure when he is in AF but does have palpitations that have been going on for several months. Denies other cardiac symptoms. Past Med Surg Social Fam HX - Past Medical History Medical history: no medical history, arthritis, hyperlipidemia, other Additional medical history: hematuria, stomach ulcer, hernia Psychiatric history: no psych history - Past Surgical History Surgical History: cholecystectomy, herniorrhaphy, orthopedic, other, splenectomy, other Additional surgical history: ercp - Social History Smoking Status: Never smoker Smokeless Tobacco Status: No Alcohol use: none Drug use: none - Family History Father Living Status: Hx Family Respiratory Disorders: Yes (emphysema) Sister Living Status: Hx Family Cancer: Yes Hx Family GI Disorders: Yes Mother Living Status: Hx Family GI Disorders: Yes (colitis) Medications and Allergies Cholecalciferol (Vitamin D3) [Vitamin D3] 2,000 unit PO DAILY 01/09/15 [History] Atorvastatin Calcium [Lipitor] 20 mg PO HS 01/01/17 [History] Aspirin [Lo-Dose Aspirin EC] 81 mg PO DAILY 03/20/17 [History] Metoprolol XL (24 HR) Succ [Toprol XL] 25 mg PO DAILY 03/04/18 [History] Allergy/AdvReac Type Severity Reaction Status Date / Time No Known Allergies Allergy Verified 01/29/18 10:11 All Systems Review: The remainder of the systems were reviewed and are negative Physical Examination Vital Signs, Last 4 Hours Temp Pulse Resp BP Pulse Ox 03/07/18 07:23 97.6 F 53 16 132/82 94 General: Conversant, No Apparent Distress HEENT: Atraumatic, Normocephaly, Mucus Membranes Moist Neck: No JVD, Normal carotid pulses Cardiac: Reg Rate and Rhythm, Normal S1 and S2, No Murmur Lungs: Normal Breath Sounds, No Wheeze, Rales, Rhonchi Neuro: Alert and responsive, No focal deficits noted Abdomen: Soft, Non-Tender Skin: No rashes noted on visualized skin Musculoskeletal: No Chest Wall Tenderness Extremities: No Clubbing, No Cyanosis, No Edema, Normal Pulses Results 03/06/18 15:50 03/07/18 06:28 Lab Results 03/06/18 03/06/18 03/06/18 12:51 12:51 12:51 WBC 8.5 Hgb 14.5 Hct 44.4 Plt Count 330 INR 1.2 APTT 34.6 Sodium 138 Potassium 3.8 Chloride 106 Carbon Dioxide 28 BUN 13 Creatinine 0.80 Glucose 98 Calcium 8.9 Total Bilirubin AST ALT Alkaline Phosphatase Troponin I < 0.03 TSH 03/06/18 03/06/18 03/07/18 15:50 15:50 06:28 WBC 8.9 Hgb 14.1 Hct 41.9 Plt Count 323 INR 1.2 1.4 APTT Sodium Potassium Chloride Carbon Dioxide BUN Creatinine Glucose Calcium Total Bilirubin AST ALT Alkaline Phosphatase Troponin I TSH 03/07/18 06:28 WBC Hgb Hct Plt Count INR APTT Sodium 138 Potassium 4.0 Chloride 108 H Carbon Dioxide 23 BUN 15 Creatinine 0.69 L Glucose 100 Calcium 8.5 L Total Bilirubin 1.6 H AST 17 ALT 16 Alkaline Phosphatase 81 Troponin I < 0.03 TSH 3.458 - EKG Interpretation EKG results cardiology: personally reviewed (NSR. I cannot find an EKG that shows atrial fibrillation but apparently one was reviewed by the ED.) Consult Discharge Plan - Plan Referrals: Kannan Grover MD [Primary Care Provider] -
--- NOTE | 2018-03-07 13:53 | Neurology - Consult Note ---
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 The patient has multiple risk factors for CVA and also is an elderly patient and i agree that he needs correction anticoagulation therapy. The sizes of the cerebral infarcts are relatively small therefore they are not considered contraindication for anticoagulation therapy. Will recommend completing carotid artery duplex and echocardiography to complete stroke work up. Patient currently has no significant focal weakness. Prognosis of this current stroke is thought to be fair. Visual deficits in the form of right hemianopsia is likely to remain. Other than that, patient should be expected to have no focal motor deficits. Please continue medical and supportive care. I spent approximately 50 minutes face to face with the patient, of which more than 50% was spent in counseling and coordination of care. Qualifiers: CVA mechanism: embolism Laterality of affected vessel: unspecified Qualified Code(s): I63.419 - Cerebral infarction due to embolism of unspecified middle cerebral artery History of Present Illness Chief complaint: vision loss HPI: Mr. Clay is a 77 year old male with PMH significant for HTN, COPD, atrial fibrillation, DJD, obesity, GERD, hyperlipidemia who developed acute onset of vision difficulty. Symptoms Occurred on Last Friday and He went to ER here at [facility] and he was referred to Dr. Reza Arrieta who evaluated the patient promptly and recommended the patient an MRI of brain and orbit and eye which were completed on Friday which showed presence of acute cerebral infarct at the left occipital lobe as well as a smaller one at the left posteromedial left temporal lobe in the left MCA territory and there is also a tiny focus of acute to subacute infarct in the posterior frontal lobe in the le ft MCA territory, therefore it was thought that the stroke is likely embolic in nature since they were involved at both anterior and posterior circulation. Patient was found to have new onset of atrial fibrillation and is currently being anticoagulated in the ER. Symptoms started On last Friday therefore he is not a candidate for tPA thrombolysis. Patient denies any significant focal weakness and may be his balance was a little off at the beginning but he is able to walk without assistance. Initial CT of head showed no acute intracranial abnormality. MRI of the orbit and eyeball reviewed and showed no significant pathology. At the time of this interview patient states that on last Friday he suddenly developed vision loss and then when he grabbed newspaper to read he could not read the right side of the field. He currently still has right hemianopsia. No headaches, no fever, and no dizziness or focal weakness. Past Med Surg Social Fam HX - Past Medical History Medical history: no medical history, arthritis, hyperlipidemia, other Additional medical history: hematuria, stomach ulcer, hernia Psychiatric history: no psych history - Past Surgical History Surgical History: cholecystectomy, herniorrhaphy, orthopedic, other, splenectomy, other Additional surgical history: ercp - Social History Smoking Status: Never smoker Smokeless Tobacco Status: No Alcohol use: none Drug use: none - Family History Father Living Status: Hx Family Respiratory Disorders: Yes (emphysema) Sister Living Status: Hx Family Cancer: Yes Hx Family GI Disorders: Yes Mother Living Status: Hx Family GI Disorders: Yes (colitis) Medications and Allergies Cholecalciferol (Vitamin D3) [Vitamin D3] 2,000 unit PO DAILY 01/09/15 [History] Atorvastatin Calcium [Lipitor] 20 mg PO HS 01/01/17 [History] Aspirin [Lo-Dose Aspirin EC] 81 mg PO DAILY 03/20/17 [History] Metoprolol XL (24 HR) Succ [Toprol XL] 25 mg PO DAILY 03/04/18 [History] Allergy/AdvReac Type Severity Reaction Status Date / Time No Known Allergies Allergy Verified 01/29/18 10:11 All Systems: The remainder of the systems were reviewed and are negative Physical Examination - Vital Signs Vital Signs: Initial Vital Signs Temp Pulse Resp BP Pulse Ox 97.9 F 53 17 143/75 99 03/06/18 12:45 03/06/18 12:45 03/06/18 12:45 03/06/18 12:45 03/06/18 12:45 - Constitutional General appearance: comfortable - Neurologic Sensorimotor examination: intact Detailed motor examination: full strength in all major muscle groups Motor examination - right side: 5/5: deltoids, biceps, triceps, wrist flexion, wrist extension, customer expert, hip flexors, tibialis Anterior, quadriceps, toe extension (EHL), plantarflexion Motor examination - left side: 07/26: deltoids, biceps, triceps, wrist flexion, wrist extension, hip flexors, customer expert, quadriceps, tibialis Anterior, toe extension (EHL), plantarflexion Detailed sensory examination: intact Posture: other (None) Reflexes: Biceps: 2+, Triceps: 2+, Brachioradialis: 2+, Patella: 2+, Achilles: 2+ Mental Status Examination: awake, alert, oriented to person, oriented to place, oriented to time, follows commands appropriately, answers questions appropriately, no agnosia, no aphasia, no aproxia, lucid Cranial nerve examination: PERRL, EOMI, visual fox intact (Patient has right hemianopsia with visual confrontation test), corneal reflexes brisk symmetrically, sensory to face intact, mastication intact, no facial asymmetry is present, no dysarthria, hearing is intact symmetrically, soft palate elevates bilaterally upon phonation, gag reflex intact, flexes SCM and trapezius muscles symmetrically with full power, tongue protrudes midline, no atrophy or facial fasiculations present Cerebellar examination: no dysmetria, performs finger to nose and heel to null symmetrically without ataxia, no gait ataxia, no truncal ataxia, no difficulty with rapid alternating movements Results - Laboratory Findings CBC and BMP: 03/06/18 15:50 03/07/18 06:28 Abnormal lab findings: Abnormal lab results PT 15.5 Seconds (9.4-12.1) H 03/07/18 06:28 Chloride 108 mEq/L (98-107) H 03/07/18 06:28 Creatinine 0.69 mg/dL (0.70-1.30) L 03/07/18 06:28 Calcium 8.5 mg/dL (8.6-10.3) L 03/07/18 06:28 Total Bilirubin 1.6 mg/dL (0.3-1.0) H 03/07/18 06:28 Serum Total Protein 5.7 g/dL (6.4-8.9) L 03/07/18 06:28 Albumin 3.2 g/dL (3.5-5.7) L 03/07/18 06:28 HDL Cholesterol 36 mg/dL (40-59) L 03/07/18 06:28 Ur Specific [place] 1.009 (1.010-1.025) L 03/07/18 05:00 Urine Blood Large (Negative) H 03/07/18 05:00 Urine Microscopic RBC 50-100 per hpf (0-3) H 03/07/18 05:00 - Diagnostic Findings Additional findings: MR head/brain wo/w con [id number] REPORT Exam: [address] [place] [address] Magnetic Resonance Report Signed PRELIMINARY DRAFT REPORT UNTIL ELECTRONICALLY SIGNED PATIENT: Olga Clay MR#: [id number] ther E : 1940 ORDER PHYSICIAN: Reza Arrieta BIRAD: NA Not Applicable See Below For Report EXAMINATION: MRI OF THE BRAIN WITHOUT AND WITH CONTRAST; MRI OF THE ORBITS WITH AND WITHOUT CONTRAST 03/06/2018 9:33 am TECHNIQUE: Multiplanar multisequence MRI of the head/brain was performed without and with the administration of intravenous contrast.; Multiplanar multisequence MRI of the orbits was performed with and without the administration of intravenous contrast. COMPARISON: CT head March 04, 2018 HISTORY: ORDERING SYSTEM PROVIDED HISTORY: VISUAL FIELD DEFECTS FINDINGS: INTRACRANIAL STRUCTURES/VENTRICLES: There is acute to subacute infarction in the left occipital lobe and posteromedial left temporal lobe, in the left INSIDE CHANNEL ACCOUNT MANAGER territory. There is a tiny focus of acute to subacute infarction in the posterior frontal lobe in the left MCA territory. There is a tiny focus of subacute infarction in the posterior left frontal centrum semiovale. There is mild parenchymal volume loss. There is mild T2/FLAIR hyperintensity in the periventricular and subcortical white matter, likely related to mild chronic microvascular disease. No mass effect or midline shift. No evidence of an acute intracranial hemorrhage. There is no evidence of hydrocephalus. There is partial empty sella. The normal signal voids within the major intracranial vessels appear maintained. No abnormal focus of enhancement is seen within the brain. ORBITS: The bilateral globes are intact. The bilateral lenses are normally located. There is mildly prominent CSF space surrounding the bilateral optic nerves, nonspecific. The remainder of the bilateral optic nerve sheath complexes are within normal limits. There is no abnormal signal in the bilateral optic nerves. The bilateral extra-ocular muscles are within normal limits. The bilateral orbital fat is clear. There is no evidence of retrobulbar hematoma or mass. There is no abnormal enhancement in the bilateral orbits. The optic chiasm is within normal limits. SINUSES: There is scattered minimal mucosal thickening in the paranasal sinuses. The bilateral mastoid air cells are clear. BONES/SOFT TISSUES: The bone marrow signal intensity appears normal. The soft tissues demonstrate no acute abnormality. MR/MR head/brain wo/w con IMPRESSION: Acute to subacute infarction in the left occipital lobe and posteromedial left temporal lobe, in the left INSIDE CHANNEL ACCOUNT MANAGER territory. There is a tiny focus of acute to subacute infarction in the posterior frontal lobe in the left MCA territory. There is a tiny focus of subacute infarction in the posterior left frontal centrum semiovale. No abnormal intracranial enhancement. Mildly prominent CSF space surrounding the bilateral optic nerves, nonspecific, can be seen in intracranial hypertension. The remainder of the bilateral orbits are within normal limits. The results were reported to Dr. Arrieta at 11:15 a.m. on March 06, 2018. D/ / 03/06/2018 11:07:43 Esau Stevenson MD / Kiara Carey Interpreting Provider: Esau Stevenson MD Sanjeev ClayCorin, 1940 ISL: [id number] [address] [address] Accession Id: [id number] Order Date: 03/06/2018 Procedure: 03/06/2018 09:21:00 Transcribed: 03/06/2018 09:21:00 Requesting Physician: Delivery, Results Ordering Physician: Reza Arrieta Copied: Delivery,Results MR orbit wo/w con [id number] REPORT Exam: [address] [address] Magnetic Resonance Report Signed PRELIMINARY DRAFT REPORT UNTIL ELECTRONICALLY SIGNED PATIENT: Olga Clay MR#: [id number] ther E : 1940 ORDER PHYSICIAN: Reza Arrieta BIRAD: NA Not Applicable See Below For Report EXAMINATION: MRI OF THE BRAIN WITHOUT AND WITH CONTRAST; MRI OF THE ORBITS WITH AND WITHOUT CONTRAST 03/06/2018 9:33 am TECHNIQUE: Multiplanar multisequence MRI of the head/brain was performed without and with the administration of intravenous contrast.; Multiplanar multisequence MRI of the orbits was performed with and without the administration of intravenous contrast. COMPARISON: CT head March 04, 2018 HISTORY: ORDERING SYSTEM PROVIDED HISTORY: VISUAL FIELD DEFECTS FINDINGS: INTRACRANIAL STRUCTURES/VENTRICLES: There is acute to subacute infarction in the left occipital lobe and posteromedial left temporal lobe, in the left INSIDE CHANNEL ACCOUNT MANAGER territory. There is a tiny focus of acute to subacute infarction in the posterior frontal lobe in the left MCA territory. There is a tiny focus of subacute infarction in the posterior left frontal centrum semiovale. There is mild parenchymal volume loss. There is mild T2/FLAIR hyperintensity in the periventricular and subcortical white matter, likely related to mild chronic microvascular disease. No mass effect or midline shift. No evidence of an acute intracranial hemorrhage. There is no evidence of hydrocephalus. There is partial empty sella. The normal signal voids within the major intracranial vessels appear maintained. No abnormal focus of enhancement is seen within the brain. ORBITS: The bilateral globes are intact. The bilateral lenses are normally located. There is mildly prominent CSF space surrounding the bilateral optic nerves, nonspecific. The remainder of the bilateral optic nerve sheath complexes are within normal limits. There is no abnormal signal in the bilateral optic nerves. The bilateral extra-ocular muscles are within normal limits. The bilateral orbital fat is clear. There is no evidence of retrobulbar hematoma or mass. There is no abnormal enhancement in the bilateral orbits. The optic chiasm is within normal limits. SINUSES: There is scattered minimal mucosal thickening in the paranasal sinuses. The bilateral mastoid air cells are clear. BONES/SOFT TISSUES: The bone marrow signal intensity appears normal. The soft tissues demonstrate no acute abnormality. MR/MR orbit wo/w con IMPRESSION: Acute to subacute infarction in the left occipital lobe and posteromedial left temporal lobe, in the left INSIDE CHANNEL ACCOUNT MANAGER territory. There is a tiny focus of acute to subacute infarction in the posterior frontal lobe in the left MCA territory. There is a tiny focus of subacute infarction in the posterior left frontal centrum semiovale. No abnormal intracranial enhancement. Mildly prominent CSF space surrounding the bilateral optic nerves, nonspecific, can be seen in intracranial hypertension. The remainder of the bilateral orbits are within normal limits. The results were reported to Dr. Arrieta at 11:15 a.m. on March 06, 2018. D/ /06/2018 11:07:43 Esau Stevenson MD / Kiara Carey Interpreting Provider: Esau Stevenson MD Link to PACS Image cc: Kannan Grover; Reza Arrieta; CT head/brain wo con [id number] REPORT Exam: [address] [id number] Cat Scan Report Signed PRELIMINARY DRAFT REPORT UNTIL ELECTRONICALLY SIGNED PATIENT: Olga Clay MR#: [id number] ther E : 1940 ORDER PHYSICIAN: Chucky STEWARD: See Below For Report EXAMINATION: CT OF THE HEAD WITHOUT CONTRAST 03/04/2018 11:35 pm TECHNIQUE: CT of the head was performed without the administration of intravenous contrast. Dose modulation, iterative reconstruction, and/or weight based adjustment of the mA/kV was utilized to reduce the radiation dose to as low as reasonably achievable. COMPARISON: None. HISTORY: ORDERING SYSTEM PROVIDED HISTORY: right hemianopsia FINDINGS: BRAIN/VENTRICLES: There is no acute intracranial hemorrhage, mass effect or midline shift. No abnormal extra-axial fluid collection. The swenson-white differentiation is maintained without evidence of an acute infarct. There is no evidence of hydrocephalus. Atherosclerosis of the intracranial vertebral and internal carotid arteries. Empty expanded sella is unchanged from the prior study. ORBITS: The visualized portion of the orbits demonstrate no acute abnormality. SINUSES: The visualized paranasal sinuses and mastoid air cells demonstrate no acute abnormality. SOFT TISSUES/SKULL: No acute abnormality of the visualized skull or soft tissues. CT/CT head/brain wo con IMPRESSION: No acute intracranial abnormality. No significant change compared to CT head done 07/24/2012. Consult Discharge Plan - Plan Referrals: Kannan Grover MD [Primary Care Provider] -
[2018-03-07] MEDS: Heparin 25,000 UNIT/500 ML D5W 25,000 UNIT/500 ML BAG IVC SCH (14:47)
--- NOTE | 2018-03-07 16:14 | Internal Med Progress Note ---
Hospitalist Progress Note - Encounter Date of Encounter: 03/07/18 Time of Encounter: 08:00 - Subjective Interval History: conchis was seen and examiedn at bedside. has no complaints, reports that he believes his vision has improved. denies N/V/D. denies any new neurological deficit - Exam Vitals: Temp Pulse Resp BP Pulse Ox 98.0 F 51 18 140/81 98 03/07/18 11:21 03/07/18 11:21 03/07/18 11:21 03/07/18 11:21 03/07/18 11:21 Exam: General: Patient is alert, oriented, no acute distress, Head: atraumatic, normocephalic, Eye: normal appearance, PERRL, no scleral icterus, no conjunctival injection ENT: mucous membranes moist, normal external ear exam Neck: normal inspection, trachea midline, full ROM, no carotid bruits Chest: normal inspection, symmetric chest rise Respiratory: Good respiratory effort. Bilateral breath sounds are clear without wheezing, crackles, or rhonchi. Cardiovascular: irregular s1 and s2 No clicks, rubs, gallops, or murmors. Abdomen: Bowel sounds present normoactive x-4 quadrants. Abdomen is soft, nondistended. no Epigastric tenderness. No guarding or rebound. No organomegaly noted, obese musculoskeletal: Spontaneously moving all extremities. no edema, no calf tenderness Skin: warm, dry, intact. Neuro: Alert and oriented x4. Sensation light touch intact. Cranial nerves 2- 12 is intact. Not aphasic, unsteady gait, no pronator drift, 5/5 strength in all extremities, Reflexes: Biceps: 2+, Triceps: 2+, Brachioradialis: 2+, Patella: 2+, Achilles: 2+ Psych: Patient's affect is normal - Assessment and Plan (1) Thrombotic cerebral infarction Current Visit: Yes Status: Acute Assessment and Plan: Patient sent to the emergency department after MRI of the brain demonstrates acute to subacute infarct in the left occipital lobe posterior medial left temporal lobe and the left TWENTY ONE DEALER territory, any focus of acute to subacute infarct in the posterior frontal lobe and the left MCA territory, tiny focus of subacute infarct in the posterior left frontal centrum semiovale. - Patient was recently diagnosed with atrial fibrillation in the outpatient setting on 03/03/2018 had yet to start his anticoagulation, EKG reviewed demonstrating atrial fibrillation - Changes since his evaluation 03/03/2018 resulted in visual field losses in the right superior and lateral. - Patient states that he has had right-sided weakness in his arm and right leg for some time. - No previous anticoagulation Plan: - On evaluation today he is outside of TPA window. - on lipitor 80 mg QHS - continue neurochecks - Echocardiogram - Cardiac monitoring - Carotid Dopplers - Will continue heparin drip until echocardiogram is performed. -Continue aspirin 81 mg daily -Cardiology consulted for possible MONIKA will follow recommendations -Neurology was consulted will follow recommendations - Physical therapy, occupational therapy recommendations appreciated (2) Hyperlipidemia Current Visit: No Status: Acute Assessment and Plan: Continue statins (3) Visual acuity reduced Current Visit: No Status: Acute Assessment and Plan: Right visual field loss since Wed Correlating with MRI stroke pattern. Management as per above (4) Paroxysmal A-fib Current Visit: Yes Status: Acute Assessment and Plan: Patient is found to be in atrial fibrillation the outpatient setting, EKGs from 02/03/2018 and today demonstrate sinus rhythm with occasional PACs - We will continue metoprolol for rate control - Heparin drip until appropriate anticoagulation is determined. -[id number]: 4 -Echocardiograms pending -Cardiology was consulted for possible MONIKA will follow recommendations (5) Prediabetes Current Visit: Yes Status: Acute Assessment and Plan: monitor glucose inpatient and correct if necessary a1c (6) DVT prophylaxis Current Visit: Yes Status: Acute Assessment and Plan: Patient on Heparin Drip. - Time Spent with Patient Total time spent is greater than 50% in coordination of care (as documented) at patient's floor/unit and/or counseling patient: Internal Medicine: Result - Labs CBC & Chem 7: 03/06/18 15:50 03/07/18 06:28 Labs: Short CBC 03/06/18 Range/Units 15:50 WBC 8.9 (4.3-11.1) K/mcL Hgb 14.1 (12.9-16.9) g/dL Hct 41.9 (37.5-50.1) % Plt Count 323 (140-400) K/mcL BMP 03/07/18 06:28 Sodium 138 Potassium 4.0 Chloride 108 H Carbon Dioxide 23 BUN 15 Creatinine 0.69 L Glucose 100 Calcium 8.5 L Cardiac Enzymes 03/07/18 Range/Units 06:28 Troponin I < 0.03 (< 0.04) ng/mL Liver Function 03/07/18 Range/Units 06:28 Total Bilirubin 1.6 H (0.3-1.0) mg/dL AST 17 (13-39) Units/L ALT 16 (7-52) Units/L Alkaline Phosphatase 81 (34-104) Units/L Albumin 3.2 L (3.5-5.7) g/dL Urine 03/07/18 Range/Units 05:00 Urine Color Yellow (Yellow) Urine Clarity Clear (Clear) Urine pH 6.5 (5.0-8.0) pH Units Ur Specific [place] 1.009 L (1.010-1.025) Urine Protein Negative (Neg-Trace) mg/dL Urine Glucose (UA) Normal (Normal) mg/dL - ABG Interpretation ABG results: PT/INR, D-dimer PT 15.5 Seconds (9.4-12.1) H 03/07/18 06:28 Consult Discharge Plan - Plan Referrals: Kannan Grover MD [Primary Care Provider] - (1) Thrombotic cerebral infarction Qualifiers: Precerebral and cerebral artery: posterior cerebral artery Laterality of affected vessel: left Qualified Code(s): I63.332 - Cerebral infarction due to thrombosis of left posterior cerebral artery (2) Hyperlipidemia Qualifiers: Hyperlipidemia type: unspecified Qualified Code(s): E78.5 - Hyperlipidemia, unspecified
[2018-03-08 05:01] LABS: Hemoglobin 13.7 g/dL (12.9-16.9); Mean Corpuscular HGB Conc 34.3 g/dL (31.6-35.5); Mean Corpuscular Hemoglobin 32.8 pg (28.0-33.3); Mean Corpuscular Volume 95.7 fL (83.0-100.0); Mean Platelet Volume 10.8 fL (9.4-12.4); Platelet Count 307 K/mcL (140-400); Red Blood Count 4.18 M/mcL (4.19-5.50); Red Cell Distribution Width 13.7 % (11.5-14.5)
[2018-03-08 05:20] LABS: BUN/Creatinine Ratio 18 (6-26); Blood Urea Nitrogen 13 mg/dL (8-23); Calcium 8.5 mg/dL (8.6-10.3); Carbon Dioxide 24 mEq/L (23-29); Chloride 109 mEq/L (98-107); Glucose 98 mg/dL (70-105); Osmolality,Calculated 286 (280-300); Potassium 3.9 mEq/L (3.5-5.1); Sodium 138 mEq/L (136-145); eGFR For Non-African Americans > 60 (> 60)
[2018-03-08 09:09] LABS: Estimated Average Glucose 105 mg/dl; Hemoglobin A1C 5.3 %
[2018-03-08] MEDS: Aspirin Enteric Coated 81 MG Tablet PO SCH (09:23)
[2018-03-08] MEDS: 0.9 % Sodium Chloride 1,000 ML IVC SCH ×2 (09:27→23:24)
--- NOTE | 2018-03-08 10:30 | Neurology Progress Note ---
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 The patient has multiple risk factors for CVA and also is an elderly patient and i agree that he needs terminal worker anticoagulation therapy. The sizes of the cerebral infarcts are relatively small therefore they are not considered contraindication for anticoagulation therapy. Await Carotid artery duplex and echo. Results are likely not going to t acid changer. Agree with terminal worker anticoagulation therapy. Will sign off at this time. Please call if any questions Qualifiers: CVA mechanism: embolism Laterality of affected vessel: unspecified Qualified Code(s): I63.419 - Cerebral infarction due to embolism of unspecified middle cerebral artery Subjective Principal diagnosis: CVA Interval history: Patient seen and examined. He is doing well and no significant complaints. Still has visual field deficits but is able to shave by turning head around to accommodate his visual field deficits. Able to walk without difficulty. No focal weakness noted. language is intact. Objective - Constitutional Vitals: Temp Pulse Resp BP Pulse Ox 97.6 F 51 15 121/75 93 03/08/18 07:14 03/08/18 07:14 03/08/18 07:14 03/08/18 07:14 03/08/18 07:14 - Neurological Exam Sensorimotor examination: Present: intact Motor Examination: Present: full strength in all major muscle groups Motor examination - right side: 5/5: deltoids, biceps, triceps, wrist flexion, wrist extension, senior quality engineer, hip flexors, tibialis Anterior, quadriceps, toe extension (EHL), plantarflexion Motor examination - left side: 5/5: deltoids, biceps, triceps, wrist flexion, wrist extension, hip flexors, senior quality engineer, quadriceps, tibialis Anterior, toe extension (EHL), plantarflexion Sensation intact: Present: intact Posture: Present: other (None) Reflexes: Biceps: 2+, Triceps: 2+, Brachioradialis: 2+, Patella: 2+, Achilles: 2+ Mental Status Examination: Present: awake, alert, oriented to person, oriented to place, oriented to time, follows commands appropriately, answers questions appropriately, no agnosia, no aphasia, no aproxia, lucid Cranial nerve examination: Present: PERRL, EOMI, visual fox intact (Patient has right hemianopsia with visual confrontation test), corneal reflexes brisk symmetrically, sensory to face intact, mastication intact, no facial asymmetry is present, no dysarthria, hearing is intact symmetrically, soft palate elevates bilaterally upon phonation, gag reflex intact, flexes SCM and trapezius muscles symmetrically with full power, tongue protrudes midline, no atrophy or facial fasiculations present Cerebellar examination: Present: no dysmetria, performs finger to nose and heel to null symmetrically without ataxia, no gait ataxia, no truncal ataxia, no difficulty with rapid alternating movements Results - Laboratory Findings CBC and BMP: 03/08/18 04:29 03/08/18 04:29 Abnormal lab findings: Abnormal lab results RBC 4.18 M/mcL (4.19-5.50) L 03/08/18 04:29 PT 15.5 Seconds (9.4-12.1) H 03/07/18 06:28 Chloride 109 mEq/L (98-107) H 03/08/18 04:29 Calcium 8.5 mg/dL (8.6-10.3) L 03/08/18 04:29 Total Bilirubin 1.6 mg/dL (0.3-1.0) H 03/07/18 06:28 Serum Total Protein 5.7 g/dL (6.4-8.9) L 03/07/18 06:28 Albumin 3.2 g/dL (3.5-5.7) L 03/07/18 06:28 HDL Cholesterol 36 mg/dL (40-59) L 03/07/18 06:28 Ur Specific Diana 1.009 (1.010-1.025) L 03/07/18 05:00 Urine Blood Large (Negative) H 03/07/18 05:00 Urine Microscopic RBC 50-100 per hpf (0-3) H 03/07/18 05:00 Consult Discharge Plan - Plan Referrals: Kannan Grover MD [Primary Care Provider] -
--- NOTE | 2018-03-08 11:38 | Internal Med Progress Note ---
Hospitalist Progress Note - Encounter Date of Encounter: 03/08/18 Time of Encounter: 11:34 - Subjective Interval History: conchis was seen and examiedn at bedside. has no complaints, reports that he believes his vision has improved. denies N/V/D. denies any new neurological deficit - Exam Vitals: Temp Pulse Resp BP Pulse Ox 97.6 F 51 15 121/75 93 03/08/18 07:14 03/08/18 07:14 03/08/18 07:14 03/08/18 07:14 03/08/18 07:14 Exam: General: Patient is alert, oriented, no acute distress, Head: atraumatic, normocephalic, Eye: normal appearance, PERRL, no scleral icterus, no conjunctival injection ENT: mucous membranes moist, normal external ear exam Neck: normal inspection, trachea midline, full ROM, no carotid bruits Chest: normal inspection, symmetric chest rise Respiratory: Good respiratory effort. Bilateral breath sounds are clear without wheezing, crackles, or rhonchi. Cardiovascular: irregular s1 and s2 No clicks, rubs, gallops, or murmors. Abdomen: Bowel sounds present normoactive x-4 quadrants. Abdomen is soft, nondistended. no Epigastric tenderness. No guarding or rebound. No organomegaly noted, obese musculoskeletal: Spontaneously moving all extremities. no edema, no calf tenderness Skin: warm, dry, intact. Neuro: Alert and oriented x4. Sensation light touch intact. Cranial nerves 2- 12 is intact. Not aphasic, unsteady gait, no pronator drift, 5/5 strength in all extremities, Reflexes: Biceps: 2+, Triceps: 2+, Brachioradialis: 2+, Patella: 2+, Achilles: 2+ Psych: Patient's affect is normal - Assessment and Plan (1) Thrombotic cerebral infarction Current Visit: Yes Status: Acute Assessment and Plan: Patient sent to the emergency department after MRI of the brain demonstrates acute to subacute infarct in the left occipital lobe posterior medial left temporal lobe and the left WHEEL AND PINION INSPECTOR territory, any focus of acute to subacute infarct in the posterior frontal lobe and the left MCA territory, tiny focus of subacute infarct in the posterior left frontal centrum semiovale. - Patient was recently diagnosed with atrial fibrillation in the outpatient setting on 03/03/2018 had yet to start his anticoagulation, EKG reviewed demonstrating atrial fibrillation - Changes since his evaluation 03/03/2018 resulted in visual field losses in the right superior and lateral. - Patient states that he has had right-sided weakness in his arm and right leg for some time. - No previous anticoagulation Plan: - outside of TPA window. - on lipitor 80 mg QHS - continue neurochecks - Echocardiogram- pending - Cardiac monitoring - Carotid Dopplers- pending - Will continue heparin drip until echocardiogram is performed for consideration of OAC . -Continue aspirin 81 mg daily -Cardiology consulted for possible MONIKA will follow recommendations and for tachybrady -Neurology was consulted will follow recommendations - Physical therapy, occupational therapy recommendations appreciated (2) Hyperlipidemia Current Visit: No Status: Acute Assessment and Plan: Continue statins (3) Visual acuity reduced Current Visit: No Status: Acute Assessment and Plan: Right visual field loss since Wed Correlating with MRI stroke pattern. Management as per above (4) Paroxysmal A-fib Current Visit: Yes Status: Acute Assessment and Plan: Patient is found to be in atrial fibrillation the outpatient setting, EKGs from 02/03/2018 and today demonstrate sinus rhythm with occasional PACs - We will continue metoprolol for rate control - Heparin drip until appropriate anticoagulation is determined. -[id number]: 4 -Echocardiograms pending -Cardiology was consulted for possible MONIKA will follow recommendations (5) Prediabetes Current Visit: Yes Status: Acute Assessment and Plan: monitor glucose inpatient and correct if necessary a1c 5.3 (6) DVT prophylaxis Current Visit: Yes Status: Acute Assessment and Plan: Patient on Heparin Drip. - Time Spent with Patient Total time spent is greater than 50% in coordination of care (as documented) at patient's floor/unit and/or counseling patient: Internal Medicine: Result - Labs CBC & Chem 7: 03/08/18 04:29 03/08/18 04:29 Labs: Short CBC 03/08/18 Range/Units 04:29 WBC 10.0 (4.3-11.1) K/mcL Hgb 13.7 (12.9-16.9) g/dL Hct 40.0 (37.5-50.1) % Plt Count 307 (140-400) K/mcL BMP 03/08/18 04:29 Sodium 138 Potassium 3.9 Chloride 109 H Carbon Dioxide 24 BUN 13 Creatinine 0.74 Glucose 98 Calcium 8.5 L - ABG Interpretation ABG results: PT/INR, D-dimer PT 15.5 Seconds (9.4-12.1) H 03/07/18 06:28 Consult Discharge Plan - Plan Referrals: Kannan Grover MD [Primary Care Provider] - ____ (1) Thrombotic cerebral infarction Qualifiers: Precerebral and cerebral artery: posterior cerebral artery Laterality of affected vessel: left Qualified Code(s): I63.332 - Cerebral infarction due to thrombosis of left posterior cerebral artery (2) Hyperlipidemia Qualifiers: Hyperlipidemia type: unspecified Qualified Code(s): E78.5 - Hyperlipidemia, unspecified
[2018-03-08] MEDS: Heparin 25,000 UNIT/500 ML D5W 25,000 UNIT/500 ML BAG IVC SCH (15:49)
--- NOTE | 2018-03-08 21:00 | Event Note ---
Date of Encounter: 03/08/18 Time of Encounter: 20:10 Notified by nurse of patient complaining of worsening vision. Assessed patient at bedside. Vision deficits following recent stroke noted, however patient now states they seem to be progressing as he is no longer able to read the sign on the wall in his room and attempted to read newspaper and vision was too blurry to read. No other new neurological deficits noted. Vitals stable. Onset of new vision changes unclear as patient states he had not attempted reading sign or newspaper until this evening. Contacted concrete spreader neurologist Dr Castellano and notified of changes and recommended stat head CT which has been ordered.
[2018-03-09] MEDS: Aspirin Enteric Coated 81 MG Tablet PO SCH (07:44)
--- NOTE | 2018-03-09 08:55 | Internal Med Progress Note ---
Hospitalist Progress Note - Encounter Date of Encounter: 03/09/18 Time of Encounter: 08:00 - Subjective Interval History: conchis was seen and examined at bedside. has no complaints, was given newspaper overnight and was unable to read the newspaper as he did prior to admission. CT head performed which showed no acute abnormalities. He reports that he had not read a newspaper since he was admitted so he is unsure what his vision has been while reading since hospitalized. He does open his vision is improved while he is watching TV however. denies N/V/D. denies any new neurological deficit, denies headache. Has had no chest pain, shortness of breath or palpitations - Exam Vitals: Temp Pulse Resp BP Pulse Ox 98.6 F 96 16 105/60 96 03/09/18 07:17 03/09/18 07:17 03/09/18 07:17 03/09/18 07:17 03/09/18 07:17 Exam: General: Patient is alert, oriented, no acute distress, Head: atraumatic, normocephalic, Eye: normal appearance, PERRL, no scleral icterus, no conjunctival injection ENT: mucous membranes moist, normal external ear exam Neck: normal inspection, trachea midline, full ROM, no carotid bruits Chest: normal inspection, symmetric chest rise Respiratory: Good respiratory effort. Bilateral breath sounds are clear without wheezing, crackles, or rhonchi. Cardiovascular: irregular s1 and s2 No clicks, rubs, gallops, or murmors. Abdomen: Bowel sounds present normoactive x-4 quadrants. Abdomen is soft, nondistended. no Epigastric tenderness. No guarding or rebound. No organomegaly noted, obese musculoskeletal: Spontaneously moving all extremities. no edema, no calf tenderness Skin: warm, dry, intact. Neuro: Alert and oriented x4. Sensation light touch intact. Cranial nerves 2- 12 is intact. Not aphasic, unsteady gait, no pronator drift, 5/5 strength in all extremities, Reflexes: Biceps: 2+, Triceps: 2+, Brachioradialis: 2+, Patella: 2+, Achilles: 2+ Psych: Patient's affect is normal - Assessment and Plan (1) Thrombotic cerebral infarction Current Visit: Yes Status: Acute Assessment and Plan: Patient sent to the emergency department after MRI of the brain demonstrates acute to subacute infarct in the left occipital lobe posterior medial left temporal lobe and the left MEDICAL BILLING ASSISTANT territory, any focus of acute to subacute infarct in the posterior frontal lobe and the left MCA territory, tiny focus of subacute infarct in the posterior left frontal centrum semiovale. - Patient was recently diagnosed with atrial fibrillation in the outpatient setting on 03/03/2018 had yet to start his anticoagulation, EKG reviewed demonstrating atrial fibrillation - Changes since his evaluation 03/03/2018 resulted in visual field losses in the right superior and lateral. - Patient states that he has had right-sided weakness in his arm and right leg for some time. - No previous anticoagulation Plan: - outside of TPA window. - on lipitor 80 mg QHS - continue neurochecks - Echocardiogram- LVEF 60%. Normal LV chamber size, wall thickness and systolic function. Indeterminate diastolic function. - Cardiac monitoring - Carotid Dopplers- Findings: Right proximal ICA has a severe, 60-79% stenosis. Findings: Left mid ICA has a moderate, 40-59% stenosis. - on heparin drip being bridged to coumadin -Continue aspirin 81 mg daily -Cardiology consulted for possible MONIKA will follow recommendations and for tachybrady -Neurology was consulted will follow recommendations - Physical therapy, occupational therapy recommendations appreciated MRI orbits: IMPRESSION: Acute to subacute infarction in the left occipital lobe and posteromedial left temporal lobe, in the left MEDICAL BILLING ASSISTANT territory. There is a tiny focus of acute to subacute infarction in the posterior frontal lobe in the left MCA territory. There is a tiny focus of subacute infarction in the posterior left frontal centrum semiovale. No abnormal intracranial enhancement. Mildly prominent CSF space surrounding the bilateral optic nerves, nonspecific, can be seen in intracranial hypertension. The remainder of the bilateral orbits are within normal limits. MRI IMPRESSION: Acute to subacute infarction in the left occipital lobe and posteromedial left temporal lobe, in the left MEDICAL BILLING ASSISTANT territory. There is a tiny focus of acute to subacute infarction in the posterior frontal lobe in the left MCA territory. here is a tiny focus of subacute infarction in the posterior left frontal centrum semiovale. No abnormal intracranial enhancement. Mildly prominent CSF space surrounding the bilateral optic nerves, nonspecific, can be seen in intracranial hypertension. The remainder of the bilateral orbits are within normal limits. (2) Internal carotid artery stenosis Current Visit: Yes Status: Acute Assessment and Plan: Findings: Right proximal ICA has a severe, 60-79% stenosis. Findings: Left mid ICA has a moderate, 40-59% stenosis. on heparin drip, ASA and statins neurology on board as the stroes are not related to carotid stenosis he may follo wup as OP with vascular surgery. (3) Hyperlipidemia Current Visit: No Status: Acute Assessment and Plan: Continue statins (4) Visual acuity reduced Current Visit: No Status: Acute Assessment and Plan: Right visual field loss since Wed Correlating with MRI stroke pattern. Repeat CT head no acute abnormalities on 03/09 Management as per above (5) Paroxysmal A-fib Current Visit: Yes Status: Acute Assessment and Plan: Patient is found to be in atrial fibrillation the outpatient setting, EKGs from 02/03/2018 and today demonstrate sinus rhythm with occasional PACs - We will continue metoprolol for rate control - Heparin drip bridged to Coumadin -[id number]: 4 -TTE:LVEF 60%. Normal LV chamber size, wall thickness and systolic function.indeterminate diastolic function. -Cardiology on board (6) Prediabetes Current Visit: Yes Status: Acute Assessment and Plan: monitor glucose inpatient and correct if necessary a1c 5.3 (7) DVT prophylaxis Current Visit: Yes Status: Acute Assessment and Plan: Patient on Heparin Drip bridged to coumadin - Time Spent with Patient Total time spent is greater than 50% in coordination of care (as documented) at patient's floor/unit and/or counseling patient: Internal Medicine: Result - Labs CBC & Chem 7: 03/08/18 04:29 03/08/18 04:29 - ABG Interpretation ABG results: PT/INR, D-dimer PT 15.5 Seconds (9.4-12.1) H 03/07/18 06:28 - Impressions Impressions Echocardiogram 03/07/18 21:17 Impressions: LVEF 60%. Normal LV chamber size, wall thickness and systolic function. Indeterminate diastolic function. Normal right ventricular structure and function. Mild biatrial dilatation. Mild mitral regurgitation. Mild tricuspid regurgitation. Mild pulmonic regurgitation. No pulmonary hypertension. No evidence of PFO with agitated saline contrast. Left Ventricular Wall Motion: Rest Echo Findings All wall segments showed normal motion. Findings: Study Quality * Technically adequate exam. ECG Findings * Atrial fibrillation. Left Ventricle * LVEF 60%. * Normal LV chamber size, wall thickness and systolic function. * Indeterminate diastolic function. * Definity echo contrast was not used. Right Ventricle * Normal right ventricular structure and function. Left Atrium * Mildly dilated left atrium. Right Atrium * Mildly dilated right atrium. Interatrial Septum * No evidence of PFO with agitated saline contrast. Aortic Valve * Mildly calcified aortic valve leaflets. * No aortic stenosis. * No aortic regurgitation. Mitral Valve * Normal mitral valve structure. * No mitral stenosis. * Mild mitral regurgitation. Tricuspid Valve * Normal tricuspid valve structure. * No tricuspid stenosis. * Mild tricuspid regurgitation. * Estimated RVSP is 30 mmHg. * Estimated RA pressure is 8 mmHg. * No pulmonary hypertension. Pulmonic Valve * Pulmonic valve is not well visualized. * No pulmonic stenosis. * Mild pulmonic regurgitation. Aorta * Normally sized aortic root. Pericardium * The pericardium appears normal. IVC * The IVC is dilated. * > 50% respiratory change Head CT 03/08/18 20:50 IMPRESSION: No acute intracranial abnormality. Senescent changes including chronic microvascular change and atherosclerotic calcifications of the major intracranial vessels. No change from prior exam. D/ / Sunshine Luciano MD / Sunshine Luciano MD Interpreting Provider: Sunshine Luciano MD Consult Discharge Plan - Plan Referrals: Kannan Grover MD [Primary Care Provider] - (1) Thrombotic cerebral infarction Qualifiers: Precerebral and cerebral artery: posterior cerebral artery Laterality of affected vessel: left Qualified Code(s): I63.332 - Cerebral infarction due to thrombosis of left posterior cerebral artery (3) Hyperlipidemia Qualifiers: Hyperlipidemia type: unspecified Qualified Code(s): E78.5 - Hyperlipidemia, unspecified
--- NOTE | 2018-03-09 09:30 | Neurology Progress Note ---
Addendum entered and electronically signed by Thuan Mix DO 03/09/18 11:40: Addendum entered and electronically signed by Jesika Castellano MD 03/09/18 11:31: Patient seen and examined. I agree with Dr. Dominguez Larose's assessment and plan outline below. In [facility], patient is a 77 year old man with HTN, atrital fibrillation who developed acute visual field deficits caused by embolic events involving the left occipital region. There was also a small acute infarct involving the left temporal cortex indicating the embolic nature of the event. 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 Neurological examination showed right hemianopsia with slight improvement in regaining of vision to the right inferior quadrant. Repeat CT of head showed maturing lesion at the same region no evidence of intracranial bleed. Right carotid artery ICA stenosis of 60%-79% not related to currently stroke. He is to follow up with vascular surgery as an outpatient. 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 because it was too expensive - Patient described his visual field losses right superior and lateral - TTE 03/08: LVEF 60%, no evidence of PFO Plan: - Continue Lipitor, neurochecks - Currently on heparin, being bridged to Coumadin - PTOT was consulted (2) Acute loss of vision Current Visit: Yes Status: Acute - On 03/08 at 20:10, patient complained of worsening vision; patient reported acute worsening - Was no longer able to see the sign on the wall; attempted to read newspaper and patient was too blurry to read - CT of the head was ordered stat; showed no acute intracranial abnormality, unchanged from previous exam - Patients symptoms are likely due to swelling in the brain post CVA (3) Internal carotid artery stenosis Current Visit: Yes Status: Acute - Carotid duplex from 03/06 demonstrated the following: R proximal ICA has severe, 60-79% stenosis; L mid ICA has a moderate, 40-59% stenosis - Patient is currently on ASA, statin, heparin drip Subjective Principal diagnosis: CVA Objective - Constitutional Vitals: Temp Pulse Resp BP Pulse Ox 98.6 F 96 16 105/60 96 03/09/18 07:17 03/09/18 07:17 03/09/18 07:17 03/09/18 07:17 03/09/18 07:17 - Neurological Exam Sensorimotor examination: Present: intact Motor Examination: Present: full strength in all major muscle groups Motor examination - left side: 55: deltoids, biceps, triceps, wrist flexion, wrist extension, hip flexors, branch account executive, quadriceps, tibialis Anterior, toe extension (EHL), plantarflexion Sensation intact: Present: intact Posture: Present: other (None) Mental Status Examination: Present: awake, alert, oriented to person, oriented to place, oriented to time, follows commands appropriately, answers questions appropriately, no agnosia, no aphasia, no aproxia, lucid Cranial nerve examination: Present: PERRL, EOMI, visual fox intact (Patient has right hemianopsia with visual confrontation test), corneal reflexes brisk symmetrically, sensory to face intact, mastication intact, no facial asymmetry is present, no dysarthria, hearing is intact symmetrically, soft palate elevates bilaterally upon phonation, gag reflex intact, flexes SCM and trapezius muscles symmetrically with full power, tongue protrudes midline, no atrophy or facial fasiculations present Cerebellar examination: Present: no dysmetria, performs finger to nose and heel to null symmetrically without ataxia, no gait ataxia, no truncal ataxia, no difficulty with rapid alternating movements Results - Laboratory Findings CBC and BMP: 03/08/18 04:29 03/08/18 04:29 Abnormal lab findings: Abnormal lab results RBC 4.18 M/mcL (4.19-5.50) L 03/08/18 04:29 PT 15.5 Seconds (9.4-12.1) H 03/07/18 06:28 Chloride 109 mEq/L (98-107) H 03/08/18 04:29 Calcium 8.5 mg/dL (8.6-10.3) L 03/08/18 04:29 Total Bilirubin 1.6 mg/dL (0.3-1.0) H 03/07/18 06:28 Serum Total Protein 5.7 g/dL (6.4-8.9) L 03/07/18 06:28 Albumin 3.2 g/dL (3.5-5.7) L 03/07/18 06:28 HDL Cholesterol 36 mg/dL (40-59) L 03/07/18 06:28 Ur Specific Reynolds 1.009 (1.010-1.025) L 03/07/18 05:00 Urine Blood Large (Negative) H 03/07/18 05:00 Urine Microscopic RBC 50-100 per hpf (0-3) H 03/07/18 05:00 Consult Discharge Plan - Plan Referrals: Kannan Grover MD [Primary Care Provider] - <Jesika Castellano - Last Filed: 03/09/18 11:29> Date of Encounter: 03/09/18 Assessment and Plan (1) Stroke Current Visit: Yes Status: Acute Qualifiers: CVA mechanism: embolism Laterality of affected vessel: unspecified Qualified Code(s): I63.419 - Cerebral infarction due to embolism of unspecified middle cerebral artery Objective - Constitutional Vitals: Temp Pulse Resp BP Pulse Ox 98.6 F 96 16 105/60 96 03/09/18 07:17 03/09/18 07:17 03/09/18 07:17 03/09/18 07:17 03/09/18 07:17 Results - Laboratory Findings CBC and BMP: 03/08/18 04:29 03/08/18 04:29 Abnormal lab findings: Abnormal lab results RBC 4.18 M/mcL (4.19-5.50) L 03/08/18 04:29 PT 14.4 Seconds (9.4-12.1) H 03/09/18 09:17 Chloride 109 mEq/L (98-107) H 03/08/18 04:29 Calcium 8.5 mg/dL (8.6-10.3) L 03/08/18 04:29 Total Bilirubin 1.6 mg/dL (0.3-1.0) H 03/07/18 06:28 Serum Total Protein 5.7 g/dL (6.4-8.9) L 03/07/18 06:28 Albumin 3.2 g/dL (3.5-5.7) L 03/07/18 06:28 HDL Cholesterol 36 mg/dL (40-59) L 03/07/18 06:28 Ur Specific Reynolds 1.009 (1.010-1.025) L 03/07/18 05:00 Urine Blood Large (Negative) H 03/07/18 05:00 Urine Microscopic RBC 50-100 per hpf (0-3) H 03/07/18 05:00
[2018-03-09 09:36] LABS: INR 1.3; Prothrombin Time 14.4 Seconds (9.4-12.1)
--- NOTE | 2018-03-09 13:19 | Electrocardiograph Report ---
[place] [id number] Test Date: 2018-03-06 Pat Name: Sanjeev Clay Department: [id number] Room: 2NE28 Gender: M Title I Teacher: : 1940 Requested By: Jeremy Hopper Order Number: [id number] Reading MD: Bashir Hodgson Measurements Intervals Warren Rate: 59 P: HI: QRS: -15 QRSD: 120 T: 44 QT: 445 QTc: 441 Interpretive Statements Sinus rhythm Nonspecific intraventricular conduction delay Possible anteroseptal infarct, age indeterminate Electronically Signed On 03-09-2018 13:17:25 EST by Bashir Hodgson
[2018-03-09] MEDS: Heparin 25,000 UNIT/500 ML D5W 25,000 UNIT/500 ML BAG IVC SCH (17:09)
[2018-03-09] MEDS ORDERED: *HR* Warfarin 5 MG TABLET PO ONE (18:00)
[2018-03-09] MEDS ORDERED: Warfarin perPT PO PRN (18:00)
[2018-03-10 04:43] LABS: INR 1.3; Prothrombin Time 14.5 Seconds (9.4-12.1)
[2018-03-10] MEDS: Aspirin Enteric Coated 81 MG Tablet PO SCH (08:20)
[2018-03-10] MEDS ORDERED: *HR* Enoxaparin 100 MG/ML SYRINGE SQ SCH (10:45)
--- NOTE | 2018-03-10 11:09 | Discharge Summary ---
- NOTES TO OUTPATIENT PROVIDER Notes to Outpatient Provider: follow INR and stop lovenox after INR has been 2 for 24hrs. referral was made for coumadin clinic. follw CBC and BMP and replace elctrolytes as needed Orders not resulted at time of discharge: Pending orders 03/11/18 04:00 PT/INR [Prothrombin Time INR] [COAG] AM 0400 03/12/18 04:00 PT/INR [Prothrombin Time INR] [COAG] AM 0400 03/13/18 04:00 PT/INR [Prothrombin Time INR] [COAG] AM 0400 Date of Encounter: 03/10/18 Time of Encounter: 11:06 - Discharge Diagnosis (1) Thrombotic cerebral infarction Priority: Primary Status: Acute Qualifiers: Precerebral and cerebral artery: posterior cerebral artery Laterality of affected vessel: left Qualified Code(s): I63.332 - Cerebral infarction due to thrombosis of left posterior cerebral artery (2) Internal carotid artery stenosis Priority: Secondary Status: Acute Qualifiers: Laterality: bilateral Qualified Code(s): I65.23 - Occlusion and stenosis of bilateral carotid arteries (3) Hyperlipidemia Priority: Secondary Status: Acute Qualifiers: Hyperlipidemia type: unspecified Qualified Code(s): E78.5 - Hyperlipidemia, unspecified (4) Visual acuity reduced Priority: Secondary Status: Acute (5) Paroxysmal A-fib Priority: Secondary Status: Acute (6) Prediabetes Priority: Secondary Status: Acute (7) DVT prophylaxis Priority: Secondary Status: Acute Hospital course: "Mr. Clay is a 77 year old male with past medical history of hypertension, hyperlipidemia, prediabetes, GERD, vitamin D deficiency, degenerative disc disease, choledocholithiasis and recent biliary stent removal presents to the emergency department with decreased vision in the right eye. MRI of the brain demonstrates acute to subacute infarct in the left occipital lobe posterior medial left temporal lobe and the left CRYSTAL GROWING TECHNICIAN territory, any focus of acute to subacute infarct in the posterior frontal lobe and the left MCA territory, tiny focus of subacute infarct in the posterior left frontal centrum semiovale. Patient was recently diagnosed with atrial fibrillation in the outpatient setting on 03/03/2018 had yet to start his anticoagulation, EKG reviewed demonstrating atrial fibrillation Changes since his evaluation 03/03/2018 resulted in visual field losses in the right superior and lateral. Patient states that he has had right-sided weakness in his arm and right leg for some time. No previous anticoagulation. on presentation to [facility] he was outside of TPA window. he was started on lipitor 80 mg QHS, aspirin 81 mg, and heparin drip and bridged to Coumadin - transitioned to lovenox and coumadin. to continue with bridging until he has INR of 2 for 24hrs. Neurology and cardiology were consulted and recommendations followed. Echocardiogram- LVEF 60%. Normal LV chamber size, wall thickness and systolic function. Indeterminate diastolic function. Carotid Dopplers- Findings: Right proximal ICA has a severe, 60-79% stenosis. Findings: Left mid ICA has a moderate, 40-59% stenosis.- to follow up with vascular surgery as OP- appointment provided Physical therapy, occupational therapy recommendations appreciated, social work and case management on board and he was discharged to [facility] for further physical therapy A1C 5.3, TSH 3.458 PCP to follow CBC, INR, BMP regularly and replace electrolytes as needed. Referral to Coumadin clinic was made on discharge. He was cleared by neurology for discharge. He is to have close follow-up with neurology, cardiology team. Metoprolol dose was increased to 25 mg twice a day as his heart rates ranged in the 90s to 100s for better heart rate control. Hold metoprolol if heart rate is less than 60. MRI orbits: IMPRESSION: Acute to subacute infarction in the left occipital lobe and posteromedial left temporal lobe, in the left CRYSTAL GROWING TECHNICIAN territory. There is a tiny focus of acute to subacute infarction in the posterior frontal lobe in the left MCA territory. There is a tiny focus of subacute infarction in the posterior left frontal centrum semiovale. No abnormal intracranial enhancement. Mildly prominent CSF space surrounding the bilateral optic nerves, nonspecific, can be seen in intracranial hypertension. The remainder of the bilateral orbits are within normal limits. MRI IMPRESSION: Acute to subacute infarction in the left occipital lobe and posteromedial left temporal lobe, in the left CRYSTAL GROWING TECHNICIAN territory. There is a tiny focus of acute to subacute infarction in the posterior frontal lobe in the left MCA territory. here is a tiny focus of subacute infarction in the posterior left frontal centrum semiovale. No abnormal intracranial enhancement. Mildly prominent CSF space surrounding the bilateral optic nerves, nonspecific, can be seen in intracranial hypertension. The remainder of the bilateral orbits are within normal limits. Discharge discussed with: patient, nurse, social work, case management, eap consultant - Time Spent with Patient Total time spent providing and/or coordinating discharge services: Greater than 30 minutes (40) - Discharge Medications Prescriptions: Atorvastatin [Lipitor] 80 mg PO HS 30 Days #60 tablet Enoxaparin [Lovenox *PHARMACY WT BASED*] 70 mg SQ BID 7 Days #14 unit Metoprolol [Lopressor] 25 mg PO BID 30 Days #60 tablet Warfarin [Coumadin] 3 mg PO DAILY@1800 #14 tablet Home Medications: Cholecalciferol (Vitamin D3) [Vitamin D3] 2,000 unit PO DAILY 01/09/15 [History] Aspirin [Lo-Dose Aspirin EC] 81 mg PO DAILY 03/20/17 [History] Atorvastatin [Lipitor] 80 mg PO HS 30 Days #60 tablet 03/10/18 [Rx] Enoxaparin [Lovenox *PHARMACY WT BASED*] 70 mg SQ BID 7 Days #14 unit 03/10/18 [Rx] Metoprolol [Lopressor] 25 mg PO BID 30 Days #60 tablet 03/10/18 [Rx] Warfarin [Coumadin] 3 mg PO DAILY@1800 #14 tablet 03/10/18 [Rx] Allergies/Adverse Reactions: Allergy/AdvReac Type Severity Reaction Status Date / Time No Known Allergies Allergy Verified 01/29/18 10:11 Date of admission: 03/06/18 14:31 Primary care physician: Kannan Grover MD Consults: 03/06/18 14:43 Consult to Neurology [CONS] Routine Consulting Provider: [facility] Reason for Consult: stroke Call Completed: Yes 03/06/18 14:55 Consult for Pharmacy Education [CONS] Routine Reason for Consult: at discharge with new anticoagulation Call Completed: Yes Consult to Occupational Therapy [CONS] Routine Comment: Evaluate, develop and implement POC Reason for Consult: right sided weakness and ataxia Does patient have active BEDREST order?: No Is patient medically & hemodynamically stable?: Yes Patient assessed for mobility or mobilized this visit?: No Consult to Physical Therapy [CONS] Routine Comment: Evaluate, develop and implement POC Reason for Consult: stroke Does patient have active BEDREST order?: No Is patient medically & hemodynamically stable?: Yes Patient assessed for mobility or mobilized this visit?: No 03/07/18 07:34 Consult to Cardiology [CONS] Routine Comment: Consulting Provider: [facility] Reason for Consult: first detected Afib, acute stroke Call Completed: No 03/09/18 08:52 Consult to Case Management [CONS] Routine Comment: - Constitutional Vitals: Temp Pulse Resp BP Pulse Ox 97.8 F 98 16 131/77 94 03/10/18 07:10 03/10/18 07:10 03/10/18 07:10 03/10/18 07:10 03/10/18 08:24 Exam: General: Patient is alert, oriented, no acute distress, Head: atraumatic, normocephalic, Eye: normal appearance, PERRL, no scleral icterus, no conjunctival injection ENT: mucous membranes moist, normal external ear exam Neck: normal inspection, trachea midline, full ROM, no carotid bruits Chest: normal inspection, symmetric chest rise Respiratory: Good respiratory effort. Bilateral breath sounds are clear without wheezing, crackles, or rhonchi. Cardiovascular: irregular s1 and s2 No clicks, rubs, gallops, or murmors. Abdomen: Bowel sounds present normoactive x-4 quadrants. Abdomen is soft, nondistended. no Epigastric tenderness. No guarding or rebound. No organomegaly noted, obese musculoskeletal: Spontaneously moving all extremities. no edema, no calf tenderness Skin: warm, dry, intact. Neuro: Alert and oriented x4. Sensation light touch intact. Cranial nerves 2- 12 is intact. Not aphasic, unsteady gait, no pronator drift, 5/5 strength in all extremities, Reflexes: Biceps: 2+, Triceps: 2+, Brachioradialis: 2+, Patella: 2+, Achilles: 2+ Psych: Patient's affect is normal - Patient Status Disposition: Transfer Hospital Swing Bed Condition: Good Functional capacity at discharge: uses cane/walker Overall status at discharge: patient is progressing back to baseline - Discharge Instructions Follow Up With: Kannan Grover MD [Primary Care Provider] - - Diet and Activity Activity: as per physical therapy, increase activity as tolerated Diet: low fat, low cholesterol
--- NOTE | 2018-03-10 11:33 | Physician Discharge Referral ---
ExtendedCare Referral Info Transfer To: [facility] Provider in Charge after Transfer: PCP Institutional Level of Care: Skilled - Diagnosis (1) Thrombotic cerebral infarction Priority: Primary Status: Acute (2) Internal carotid artery stenosis Priority: Secondary Status: Acute (3) Hyperlipidemia Priority: Secondary Status: Acute (4) Visual acuity reduced Priority: Secondary Status: Acute (5) Paroxysmal A-fib Priority: Secondary Status: Acute (6) Prediabetes Priority: Secondary Status: Acute (7) DVT prophylaxis Priority: Secondary Status: Acute - Transfer Medications Prescriptions: Atorvastatin [Lipitor] 80 mg PO HS 30 Days #60 tablet Enoxaparin [Lovenox *PHARMACY WT BASED*] 70 mg SQ BID 7 Days #14 unit Metoprolol [Lopressor] 25 mg PO BID 30 Days #60 tablet Warfarin [Coumadin] 3 mg PO DAILY@1800 #14 tablet Home Medications: Cholecalciferol (Vitamin D3) [Vitamin D3] 2,000 unit PO DAILY 01/09/15 [History] Aspirin [Lo-Dose Aspirin EC] 81 mg PO DAILY 03/20/17 [History] Atorvastatin [Lipitor] 80 mg PO HS 30 Days #60 tablet 03/10/18 [Rx] Enoxaparin [Lovenox *PHARMACY WT BASED*] 70 mg SQ BID 7 Days #14 unit 03/10/18 [Rx] Metoprolol [Lopressor] 25 mg PO BID 30 Days #60 tablet 03/10/18 [Rx] Warfarin [Coumadin] 3 mg PO DAILY@1800 #14 tablet 03/10/18 [Rx] Allergies/Adverse Reactions: Allergy/AdvReac Type Severity Reaction Status Date / Time No Known Allergies Allergy Verified 01/29/18 10:11 - Respiratory Orders Smoking Cessation: Smoking cessation has been advised. For more information, call the [place] Tobacco Quit Line at 9-261-WCNGNOW. - Advance Directives Code Status: Full Code - Rehabiliation Orders Rehab Orders: Sternal Precautions, ROM Exercises, Evaluation for Physical Therapy, Evaluation for Occupational Therapy - Treatments Skin tear care topically daily PRN per policy, Fleet enema rectally every other day PRN cleansing purposes - Diet Orders Cardiac CERTIFICATION: I certify that the transfer of the above named patient to an Extended Care Facility is necessary for the continuing treatment of the diagnosis listed. The above information is true and accurate reflection of patient's current condition. Confidential - Redisclosure prohibited without a patient's written consent.
[2018-03-10] MEDS ORDERED: *HR* Warfarin 5 MG TABLET PO ONE (18:00)
[2018-03-10 19:53] VITALS: BP 153/87
[2018-03-11] MEDS ORDERED: *HR* Warfarin 3 MG TABLET PO SCH (18:00)
== END 2018-03-10 13:40 | disposition other institution (70) | DRG 65 ==
LOC: 2NENU 12:33 → EMEROOARM 12:33 → SUATTDRO 14:31 → 2NENU 15:38
PROVIDERS: ADMIT Internal Medicine; ATTEND Internal Medicine

== ENCOUNTER 2021-02-22 13:04 | Inpatient (IN) ==
[2021-02-22 13:40] LABS: Hematocrit 47.7 % (37.5-50.1); Hemoglobin 15.5 g/dL (12.9-16.9); Mean Corpuscular HGB Conc 32.5 g/dL (31.6-35.5); Mean Corpuscular Hemoglobin 32.2 pg (28.0-33.3); Mean Corpuscular Volume 99.2 fL (83.0-100.0); Mean Platelet Volume 11.3 fL (9.4-12.4); Platelet Count 267 K/mcL (140-400); Red Blood Count 4.81 M/mcL (4.19-5.50); Red Cell Distribution Width 13.9 % (11.5-14.5); White Blood Count 10.9 K/mcL (4.3-11.1)
[2021-02-22 13:53] LABS: INR 2.5; Prothrombin Time 28.2 Seconds (9.4-12.1)
[2021-02-22 13:55] LABS: Activated Partial Thrombo Time 50.4 Seconds (26.0-36.0)
[2021-02-22] MEDS ORDERED: Ondansetron 4 MG/2 ML VIAL IVP ONE (14:04)
[2021-02-22 14:13] LABS: Amylase 20 Units/L (29-103); BUN/Creatinine Ratio 14 (6-26); Blood Urea Nitrogen 14 mg/dL (8-23); Carbon Dioxide 28 mEq/L (23-29); Chloride 102 mEq/L (98-107); Eosinophils # 0.2 K/mcL (0.0-0.6); Glucose 151 mg/dL (70-105); Lipase 32 Units/L (11-82); Lymphocytes # 2.8 K/mcL (0.6-4.6); Monocytes # 0.9 K/mcL (0.0-1.3); Osmolality,Calculated 289 (280-300); Platelet Estimate Normal (Normal); Potassium 4.4 mEq/L (3.5-5.1); Sodium 138 mEq/L (136-145); Troponin I < 0.03 ng/mL (< 0.04); eGFR For African Americans > 60 (> 60); eGFR For Non-African Americans > 60 (> 60)
[2021-02-22] MEDS ORDERED: 0.9 % Sodium Chloride 1,000 ML IVC ONE (15:32)
[2021-02-22] MEDS ORDERED: Melatonin 3 MG TABLET PO PRN (16:43)
[2021-02-22] MEDS ORDERED: Acetaminophen 325 MG TABLET PO PRN (16:43)
[2021-02-22] MEDS ORDERED: Naloxone 0.4 MG/ML INJ IVP PRN (16:43)
[2021-02-22 17:10] LABS: Alanine Aminotransferase 25 Units/L (7-52); Albumin 3.6 g/dL (3.5-5.7); Alkaline Phosphatase 127 Units/L (34-104); Aspartate Amino Transferase 28 Units/L (13-39); Bilirubin,Direct 0.3 mg/dL (0.0-0.2); Bilirubin,Total 1.3 mg/dL (0.3-1.0); Globulin 3.6 g/dL (2.4-3.5); Total Protein 7.2 g/dL (6.4-8.9)
[2021-02-22] MEDS ORDERED: Dextrose Gel 15 GM/37.5 ML TUBE PO PRN ×2 (17:10)
[2021-02-22] MEDS ORDERED: *HR* Dextrose 50 % in Water (Syg) 50 ML SYRINGE IVP PRN (17:10)
[2021-02-22] MEDS ORDERED: D5% in Water 1,000 ML IVC PRN (17:10)
[2021-02-22 17:14] LABS: Thyroid Stimulating Hormone 2.748 mcIU/mL (0.340-5.600)
[2021-02-22] MEDS ORDERED: Warfarin perPT PO PRN (18:00)
[2021-02-22 18:43] LABS: Adenovirus Not Detected (Not Detect); Bordetella Pertussis Not Detected (Not Detect); Chlamydophila pneumoniae Not Detected (Not Detect); Coronavirus 229E Not Detected (Not Detect); Coronavirus HKU1 Not Detected (Not Detect); Coronavirus NL63 Not Detected (Not Detect); Coronavirus OC43 Not Detected (Not Detect); Human Metapneumovirus Not Detected (Not Detect); Human Rhinovirus/Enterovirus Not Detected (Not Detect); Influenza A Subtype 2009 H1 Not Detected (Not Detect); Influenza B Not Detected (Not Detect); Mycoplasma pneumoniae Not Detected (Not Detect); Parainfluenza Virus 1 Not Detected (Not Detect); Parainfluenza Virus 2 Not Detected (Not Detect); Parainfluenza Virus 3 Not Detected (Not Detect); Parainfluenza Virus 4 Not Detected (Not Detect); Respiratory Syncytial Virus Not Detected (Not Detect); SARS-CoV-2 Not Detected (Not Detect)
[2021-02-22] MEDS ORDERED: *HR* Warfarin 7.5 MG TABLET PO ONE (19:55)
[2021-02-23 02:02] LABS: Basophils # 0.1 K/mcL (0.0-0.2); Basophils % 0.8 %; Eosinophils # 0.2 K/mcL (0.0-0.6); Eosinophils % 1.6 %; Hematocrit 44.5 % (37.5-50.1); Hemoglobin 14.3 g/dL (12.9-16.9); Immature Granulocytes % 0.3 % (0-4); Lymphocytes # 3.2 K/mcL (0.6-4.6); Lymphocytes % 27.3 %; Mean Corpuscular HGB Conc 32.1 g/dL (31.6-35.5); Mean Corpuscular Hemoglobin 31.8 pg (28.0-33.3); Mean Corpuscular Volume 98.9 fL (83.0-100.0); Mean Platelet Volume 11.8 fL (9.4-12.4); Monocytes # 1.2 K/mcL (0.0-1.3); Neutrophils # 7.1 K/mcL (1.6-8.9); Platelet Count 247 K/mcL (140-400); Red Cell Distribution Width 13.9 % (11.5-14.5); White Blood Count 11.9 K/mcL (4.3-11.1)
[2021-02-23 02:06] LABS: INR 2.8; Prothrombin Time 30.5 Seconds (9.4-12.1)
[2021-02-23 02:20] LABS: BUN/Creatinine Ratio 16 (6-26); Blood Urea Nitrogen 14 mg/dL (8-23); Calcium 8.6 mg/dL (8.6-10.3); Carbon Dioxide 27 mEq/L (23-29); Chloride 105 mEq/L (98-107); Glucose 94 mg/dL (70-105); Magnesium 1.8 mg/dL (1.6-2.6); Osmolality,Calculated 286 (280-300); Potassium 4.3 mEq/L (3.5-5.1); Sodium 138 mEq/L (136-145); eGFR For African Americans > 60 (> 60); eGFR For Non-African Americans > 60 (> 60)
[2021-02-23] MEDS: Insulin LISPRO 300 UNITS/3 ML VIAL SUBQ SCH ×3 (07:48→18:52)
[2021-02-23] MEDS ORDERED: Isovue-370 500 ML BOTTLE IVP ONE (11:28)
[2021-02-23] MEDS ORDERED: Perflutren Lipid Microsphere 1.3 ML in 0.9 % Sodium Chloride 8.7 ML IVP PRN (11:28)
[2021-02-23] MEDS ORDERED: *HR* Metoprolol 5 MG/5 ML VIAL IVP PRN (11:32)
[2021-02-23] MEDS: Ondansetron 4 MG/2 ML VIAL IVP PRN (12:34)
[2021-02-23] MEDS ORDERED: Acetaminophen 325 MG TABLET PO PRN (14:06)
[2021-02-23] MEDS ORDERED: *HR* Warfarin 5 MG TABLET PO ONE (18:00)
[2021-02-23] MEDS ORDERED: Metoprolol XL (24 HR) Succ 50 MG TAB.ER.24H PO SCH (18:00)
[2021-02-23] MEDS ORDERED: lisinopriL 5 MG TABLET PO SCH (18:00)
[2021-02-23] MEDS: Aspirin Enteric Coated 81 MG Tablet PO SCH (19:14)
[2021-02-23] MEDS: Furosemide 40 MG TABLET PO SCH (19:14)
[2021-02-23 23:45] LABS: Bilirubin,Urine Negative (Negative); Blood,Urine Negative (Negative); Clarity,Urine Clear (Clear); Color,Urine Yellow (Yellow); Glucose,Urine (UA) Normal (Normal); Ketones,Urine Negative (Negative); Leukocyte Esterase,Urine Negative (Negative); Mucus,Urine Few per lpf (None-Few); Nitrite,Urine Negative (Negative); PH,Urine 5.5 pH Units (5.0-8.0); Protein,Urine Trace mg/dL (Neg-Trace); Specific Gravity,Urine > 1.030 (1.010-1.025); WBC,Urine 0-3 per hpf (0-3)
[2021-02-24 01:44] LABS: INR 2.8; Prothrombin Time 31.1 Seconds (9.4-12.1)
[2021-02-24] MEDS: Insulin LISPRO 300 UNITS/3 ML VIAL SUBQ SCH ×3 (07:56→17:45)
[2021-02-24] MEDS ORDERED: Thiamine (B-1) 500 MG in 0.9 % Sodium Chloride 50 ML IVPB ONE (10:19)
[2021-02-24] MEDS ORDERED: *HR* Warfarin 7.5 MG TABLET PO ONE (18:00)
[2021-02-24] MEDS: Aspirin Enteric Coated 81 MG Tablet PO SCH (18:02)
[2021-02-24] MEDS: Furosemide 40 MG TABLET PO SCH (18:02)
[2021-02-24] MEDS: lisinopriL 5 MG TABLET PO SCH (18:02)
[2021-02-25 03:01] LABS: INR 2.8; Prothrombin Time 31.1 Seconds (9.4-12.1)
[2021-02-25] MEDS: Insulin LISPRO 300 UNITS/3 ML VIAL SUBQ SCH ×3 (07:49→17:26)
[2021-02-25] MEDS: Aspirin Enteric Coated 81 MG Tablet PO SCH (17:26)
[2021-02-25] MEDS: lisinopriL 5 MG TABLET PO SCH (17:26)
[2021-02-25] MEDS: Furosemide 40 MG TABLET PO SCH (17:27)
[2021-02-26 02:43] LABS: Basophils # 0.1 K/mcL (0.0-0.2); Basophils % 0.8 %; Eosinophils # 0.8 K/mcL (0.0-0.6); Eosinophils % 5.8 %; Hematocrit 44.9 % (37.5-50.1); Hemoglobin 15.1 g/dL (12.9-16.9); Immature Granulocytes % 0.3 % (0-4); Lymphocytes # 4.1 K/mcL (0.6-4.6); Lymphocytes % 31.2 %; Mean Corpuscular HGB Conc 33.6 g/dL (31.6-35.5); Mean Corpuscular Hemoglobin 33.1 pg (28.0-33.3); Mean Corpuscular Volume 98.5 fL (83.0-100.0); Mean Platelet Volume 11.8 fL (9.4-12.4); Monocytes # 1.2 K/mcL (0.0-1.3); Monocytes % 9.4 %; Neutrophils # 6.8 K/mcL (1.6-8.9); Platelet Count 313 K/mcL (140-400); Red Blood Count 4.56 M/mcL (4.19-5.50); Red Cell Distribution Width 13.8 % (11.5-14.5); Segmented Neutrophils % 52.5 %
[2021-02-26 02:47] LABS: INR 2.2; Prothrombin Time 23.9 Seconds (9.4-12.1)
[2021-02-26 02:55] LABS: BUN/Creatinine Ratio 21 (6-26); Blood Urea Nitrogen 22 mg/dL (8-23); Calcium 8.7 mg/dL (8.6-10.3); Carbon Dioxide 27 mEq/L (23-29); Chloride 101 mEq/L (98-107); Glucose 104 mg/dL (70-105); Osmolality,Calculated 282 (280-300); Potassium 4.7 mEq/L (3.5-5.1); Sodium 134 mEq/L (136-145); eGFR For African Americans > 60 (> 60); eGFR For Non-African Americans > 60 (> 60)
[2021-02-26] MEDS: Ondansetron 4 MG/2 ML VIAL IVP PRN ×2 (05:16→11:34)
[2021-02-26] MEDS: Insulin LISPRO 300 UNITS/3 ML VIAL SUBQ SCH ×3 (08:38→16:39)
[2021-02-26] MEDS: Thiamine (B-1) 250 MG in 0.9 % Sodium Chloride 100 ML IVPB SCH ×3 (09:49→22:19)
[2021-02-26] MEDS ORDERED: Prochlorperazine 10 MG/2 ML VIAL IVP ONE (12:16)
[2021-02-26] MEDS ORDERED: Ringers Solution, Lactated 500 ML IVC ONE (12:32)
[2021-02-26] MEDS ORDERED: Ringers Solution, Lactated 1,000 ML ONE (12:33)
[2021-02-26] MEDS ORDERED: Isovue-370 500 ML BOTTLE IVP ONE (13:26)
[2021-02-26 14:05] LABS: Phosphorous 3.7 mg/dL (2.7-4.5)
[2021-02-26 14:09] LABS: Troponin I < 0.03 ng/mL (< 0.04)
[2021-02-26] MEDS: lisinopriL 5 MG TABLET PO SCH (16:46)
[2021-02-26] MEDS: Aspirin Enteric Coated 81 MG Tablet PO SCH (16:47)
[2021-02-26] MEDS: levETIRAcetam 250 MG TABLET PO SCH (16:48)
[2021-02-27 01:36] LABS: INR 1.8; Prothrombin Time 19.8 Seconds (9.4-12.1)
[2021-02-27] MEDS: levETIRAcetam 250 MG TABLET PO SCH ×2 (05:23→17:13)
[2021-02-27] MEDS: Insulin LISPRO 300 UNITS/3 ML VIAL SUBQ SCH ×3 (07:20→16:03)
[2021-02-27] MEDS: Thiamine (B-1) 100 MG TABLET PO SCH (08:40)
[2021-02-27 09:27] LABS: Basophils # 0.1 K/mcL (0.0-0.2); Hemoglobin 14.2 g/dL (12.9-16.9); Immature Granulocytes % 0.3 % (0-4); Lymphocytes # 3.7 K/mcL (0.6-4.6); Mean Corpuscular Hemoglobin 32.8 pg (28.0-33.3); Mean Corpuscular Volume 99.3 fL (83.0-100.0); Mean Platelet Volume 11.3 fL (9.4-12.4); Monocytes # 1.1 K/mcL (0.0-1.3); Monocytes % 9.3 %; Neutrophils # 5.6 K/mcL (1.6-8.9); Platelet Count 313 K/mcL (140-400); Red Blood Count 4.33 M/mcL (4.19-5.50); Segmented Neutrophils % 48.4 %; White Blood Count 11.5 K/mcL (4.3-11.1)
[2021-02-27 10:12] LABS: BUN/Creatinine Ratio 16 (6-26); Blood Urea Nitrogen 17 mg/dL (8-23); Calcium 8.8 mg/dL (8.6-10.3); Carbon Dioxide 28 mEq/L (23-29); Chloride 103 mEq/L (98-107); Glucose 102 mg/dL (70-105); Osmolality,Calculated 286 (280-300); Potassium 4.7 mEq/L (3.5-5.1); Sodium 137 mEq/L (136-145); eGFR For African Americans > 60 (> 60); eGFR For Non-African Americans > 60 (> 60)
[2021-02-27 12:18] LABS: INR 1.6; Prothrombin Time 18.2 Seconds (9.4-12.1)
[2021-02-27] MEDS ORDERED: 0.9 % Sodium Chloride 2,000 ML ONE (13:45)
[2021-02-27] MEDS ORDERED: Heparin 1,000 UNITS/500 mL 500 ML ONE (13:45)
[2021-02-27] MEDS ORDERED: Nitroglycerin 1,000 MCG/5 ML VIAL IV ONE (13:46)
[2021-02-27] MEDS ORDERED: *HR* Heparin 10,000 UNIT/10 ML VIAL ONE (13:46)
[2021-02-27] MEDS ORDERED: ISOVUE-370 200 ML INFUS..BTL ONE (13:46)
[2021-02-27] MEDS ORDERED: *HR* FentaNYL (PF) 100 MCG/2 ML VIAL ONE (13:58)
[2021-02-27] MEDS ORDERED: *HR* Midazolam HCl 2 MG/2 ML VIAL ONE (13:58)
[2021-02-27] MEDS: lisinopriL 5 MG TABLET PO SCH (16:37)
[2021-02-27] MEDS: Aspirin Enteric Coated 81 MG Tablet PO SCH (17:13)
[2021-02-28] MEDS: Ondansetron 4 MG/2 ML VIAL IVP PRN (03:32)
[2021-02-28] MEDS ORDERED: *HR* LORazepam 2 MG/ML VIAL IVP ONE (03:57)
[2021-02-28 04:51] LABS: INR 1.4; Prothrombin Time 15.7 Seconds (9.4-12.1)
[2021-02-28] MEDS ORDERED: levETIRAcetam 250 MG TABLET PO SCH (06:00)
[2021-02-28] MEDS: Insulin LISPRO 300 UNITS/3 ML VIAL SUBQ SCH ×2 (07:48→11:46)
[2021-02-28] MEDS: Thiamine (B-1) 100 MG TABLET PO SCH (07:51)
[2021-02-28 13:32] VITALS: TEMP 97.3
[2021-02-28 14:45] VITALS: BP 123/73; PULSE 84; O2SAT 94
== END 2021-02-28 15:03 | disposition home health service (06) | DRG 101 ==
LOC: EMEROOARM 13:04 → 3BNU 13:04 → SUATTDRO 17:57 → 3BNU 18:30 → SUATTDRO 02-25 16:36
PROVIDERS: ADMIT Pharmacist; ATTEND Internal Medicine